=== PATIENT | male | born 1950 | race Caucasian/White ===

== ENCOUNTER 2020-04-13 15:41 | Inpatient (IN) ==
[2020-04-13] MEDS ORDERED: IOPAMIDOL 100 ML BOTTLE IV ONE (15:42)
[2020-04-13] MEDS ORDERED: VANCOMYCIN 1,000 MG in 0.9 % SODIUM CHLORIDE 250 ML IV ONE (16:29)
[2020-04-13] MEDS ORDERED: 0.9 % SODIUM CHLORIDE 1,000 ML IV ONE (16:29)
[2020-04-13] MEDS ORDERED: PIPERACILLIN SODIUM/TAZOBACTAM 3.375 GM in DEXTROSE 5% IN WATER 50 ML IV SCH (16:30)
--- NOTE | 2020-04-13 16:35 | Emergency Department Note ---
Fever HPI - General Chief Complaint: Fever Stated Complaint: fever Time Seen by Provider: 04/13/20 16:29 Source: patient Mode of arrival: ambulatory Limitations: no limitations - History of Present Illness HPI Narrative: 69-year-old male comes in 1 day status post liver biopsy with a fever of 102. His liver is been biopsied because there was a neoplasm there and they were trying to sort out whether it was from his prostate or his stomach which also bernstein ve malignancy. [facility] sent him over. He is not having significant belly pain but he says his belly is a little bit more distended and his legs have a little bit more swelling. He does not have a history of liver failure. Denies trouble breathing. - Related Data Home Medications Medication Instructions Recorded Confirmed Walking cane 1 MISCELLANE 05/15/15 02/07/20 multivitamin 1 tab PO DAILY tab 05/15/15 04/13/20 marijuana 1 dose MISCELLANE QDAY 04/22/17 04/13/20 Right leg brace-Custom Hinged 0 dose .ROUTE .MEDSUPPLY 12/07/17 04/13/20 acidophilus 1 tab PO DAILY 02/07/20 04/13/20 ginsing 1 tab PO DAILY 02/07/20 04/13/20 iodine (kelp) 0.15 mg tablet 0.15 mcg PO QDAY tab 02/07/20 04/13/20 Pantoprazole [Protonix] 40 mg PO DAILY 04/13/20 04/13/20 Sucralfate [Carafate] 1 gm PO DAILY 04/13/20 04/13/20 Allergies Allergy/AdvReac Type Severity Reaction Status Date / Time No Known Drug Allergies Allergy Verified 02/07/20 14:45 Review of Systems All systems ED: reviewed and negative except as stated. Fever PMH - Past Medical History Attestation: Yes: The following information was validated with the patient. [facility] Narrative: Family History (Last Reviewed 02/07/20 @ 14:52 by Thuy Cr RN) Father Alzheimer's disease Senile dementia Brother Malignant neoplasm of eye Mother Lymphoma Osteoarthritis Medical History (Last Updated 03/13/20 @ 12:09 by Nikhil Berry DO) Back pain (Chronic) Chronic pain (Chronic) Chronic low back pain (Chronic) Chronic use of opiate drugs therapeutic purposes (Chronic) Adenocarcinoma of prostate (Chronic ~02/18/18) Enlarged prostate (Chronic) Angiodysplasia of colon (Chronic) Basal cell carcinoma of back (Chronic) Erectile dysfunction (Chronic) Seborrheic keratosis (Chronic) Poliomyelitis acute, late effect (Chronic) Muscle spasm (Chronic) Hemorrhoids (Chronic) Fatigue (Chronic) Esophageal stricture (Chronic) Constipation (Chronic) Allergic rhinitis (Chronic) Adenomatous polyps (Chronic) Bullous impetigo (Resolved) Left inguinal hernia (Resolved) Localized superficial swelling, mass, or lump (Resolved) Rotator cuff (capsule) sprain and strain (Resolved) Past Surgical History (Last Reviewed 02/07/20 @ 14:52 by Thuy Cr RN) History of left inguinal hernia repair (Acute) History of biopsy (Resolved) History of colonoscopy (Resolved) History of esophagogastroduodenoscopy (Resolved) History of hip surgery (Resolved) History of surgery on extremity (Resolved) Medical history: Reports: other (BPH, chronic pain to his back with use of opiates, esophageal stricture) - Social History smoking status: Former smoker Alcohol use: Reports: None Drug use: Reports: none. Denies: marijuana Physical Exam Thin male no acute distress. Alert oriented able to answer questions appropri ately. Normocephalic atraumatic. Conjunctive are clear sclerae white nonicteric. Extraocular movements do appear intact. Pupils are equal and reactive. Oropharynx is pink and moist. Neck is supple without lymphadenopathy or thyromegaly. Heart is regular rate and rhythm no murmur appreciated. Lungs are clear to auscultation bilaterally without wheezes rales rhonchi or respiratory distress. Abdomen is soft with some mild tenderness around the biopsy site but I do not see any specific redness. Nor is there a fluid wave. No peritoneal signs or guarding. However his belly is very warm to the touch. No pedal edema that I can see but he does wear a brace on his right leg-chronic injury from polio. Limitations: no limitations Course Vital Signs Temperature 102.6 F H 04/13/20 15:44 Pulse Rate 86 04/13/20 15:44 Respiratory Rate 20 04/13/20 15:44 Blood Pressure 153/73 04/13/20 15:44 Pulse Oximetry (%) 98 04/13/20 15:44 Temperature 102.7 F H 06/05/20 18:44 Pulse Rate 84 04/13/20 19:30 Respiratory Rate 20 04/13/20 15:44 Blood Pressure 140/72 04/13/20 19:30 Pulse Oximetry (%) 95 04/13/20 19:30 Fever - Lab Data Lab results reviewed: Yes I reviewed the patient's lab results. Result diagrams: 04/13/20 16:55 04/13/20 16:55 Lab Results 04/13/20 04/13/20 04/13/20 Range/Units 15:40 16:55 16:55 WBC 15.7 H (4.50-11.00) K/mcL RBC 2.86 L (4.63-6.08) M/mcL Hgb 7.1 L (13.7-17.5) g/dL Hct 23.5 L (40.1-51.0) % MCV 82.2 (80.0-100.0) fL MCH 24.8 L (26.0-34.0) pg MCHC 30.2 L (31.0-36.0) g/dL RDW 22.5 H (11.5-14.5) % Plt Count 376 (140-440) K/mcL MPV 9.2 (7.4-10.4) fL Gran % 86.3 H (38.0-78.0) % Lymph % (Auto) 7.1 L (15.5-49.0) % [place] % (Auto) 6.3 (1.0-12.0) % Eos % (Auto) 0.1 (0.0-7.0) % Baso % (Auto) 0.2 (0.0-2.0) % Gran # 13.52 H (1.80-8.00) K/mcL Lymph # (Auto) 1.11 L (1.50-4.80) K/mcL [place] # (Auto) 0.98 H (0.10-0.90) K/mcL Eos # (Auto) 0.01 (0.00-0.70) K/mcL Baso # (Auto) 0.03 (0.00-0.30) K/mcL VBG Lactic Acid (0.5-2.0) mmol/L Sodium (133-145) mmol/L Potassium (3.3-5.1) mmol/L Chloride (96-108) mmol/L Carbon Dioxide (22-30) mmol/L Anion Gap (8-16) BUN (8-23) mg/dl Creatinine (0.7-1.2) mg/dl GFR Calculation Glucose (70-105) mg/dL Calcium (8.6-10.4) mg/dl Total Bilirubin (0.0-1.0) mg/dL AST (0-37) U/l ALT (0-40) U/l Alkaline Phosphatase (39-117) U/L Total Protein (5.9-8.4) gm/dL Albumin (3.2-5.2) gm/dL Globulin (2.2-3.7) gm/dL Albumin/Globulin Ratio (1.0-2.3) Lipase (7-60) U/L Procalcitonin 1.32 (<0.10) ng/mL Urine Color Yellow Urine Appearance Turbid Urine pH 5.0 (5.0-9.0) Ur Specific [place] 1.023 (1.000-1.035) Urine Protein 30 A (NEG) mg/dL Urine Glucose (UA) Negative (NEG) mg/dL Urine Ketones Neg (NEG) mg/dL Urine Occult Blood Neg (<0.03) mg/dL Urine Nitrate Neg (NEG) Urine Bilirubin Neg (NEG) mg/dL Urine Urobilinogen Neg (NEG) mg/dL Ur Leukocyte Esterase Neg (NEG) /uL Urine RBC 129 H (0-1) /hpf Urine WBC > 182 H (0-4) /hpf Ur Squamous Epith Cells 0 (0-4) /hpf Urine Bacteria 0 (0) /hpf Urine Mucus Few (0) /hpf Ur Culture Indicated? No 04/13/20 04/13/20 Range/Units 16:55 16:55 WBC (4.50-11.00) K/mcL RBC (4.63-6.08) M/mcL Hgb (13.7-17.5) g/dL Hct (40.1-51.0) % MCV (80.0-100.0) fL MCH (26.0-34.0) pg MCHC (31.0-36.0) g/dL RDW (11.5-14.5) % Plt Count (140-440) K/mcL MPV (7.4-10.4) fL Gran % (38.0-78.0) % Lymph % (Auto) (15.5-49.0) % [place] % (Auto) (1.0-12.0) % Eos % (Auto) (0.0-7.0) % Baso % (Auto) (0.0-2.0) % Gran # (1.80-8.00) K/mcL Lymph # (Auto) (1.50-4.80) K/mcL [place] # (Auto) (0.10-0.90) K/mcL Eos # (Auto) (0.00-0.70) K/mcL Baso # (Auto) (0.00-0.30) K/mcL VBG Lactic Acid 0.9 (0.5-2.0) mmol/L Sodium 127 L (133-145) mmol/L Potassium 4.1 (3.3-5.1) mmol/L Chloride 93 L (96-108) mmol/L Carbon Dioxide 24 (22-30) mmol/L Anion Gap 10.0 (8-16) BUN 18 (8-23) mg/dl Creatinine 0.9 (0.7-1.2) mg/dl GFR Calculation 88 Glucose 119 H (70-105) mg/dL Calcium 7.9 L (8.6-10.4) mg/dl Total Bilirubin 0.3 (0.0-1.0) mg/dL AST 91 H (0-37) U/l ALT 116 H (0-40) U/l Alkaline Phosphatase 296 H (39-117) U/L Total Protein 5.9 (5.9-8.4) gm/dL Albumin 2.7 L (3.2-5.2) gm/dL Globulin 3.2 (2.2-3.7) gm/dL Albumin/Globulin Ratio 0.8 L (1.0-2.3) Lipase 14 (7-60) U/L Procalcitonin (<0.10) ng/mL Urine Color Urine Appearance Urine pH (5.0-9.0) Ur Specific [place] (1.000-1.035) Urine Protein (NEG) mg/dL Urine Glucose (UA) (NEG) mg/dL Urine Ketones (NEG) mg/dL Urine Occult Blood (<0.03) mg/dL Urine Nitrate (NEG) Urine Bilirubin (NEG) mg/dL Urine Urobilinogen (NEG) mg/dL Ur Leukocyte Esterase (NEG) /uL Urine RBC (0-1) /hpf Urine WBC (0-4) /hpf Ur Squamous Epith Cells (0-4) /hpf Urine Bacteria (0) /hpf Urine Mucus (0) /hpf Ur Culture Indicated? - Radiology Data Radiology results reviewed: Yes I reviewed the patient's radiology results. 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 Order blood and urine cultures start antibiotics with Zosyn and Vanco. CT scan and laboratory work-up. Small amount IV fluids for insensible losses CBC shows significant anemia with a hemoglobin of 7.1. Blood transfusion ordered with 3 units packed red blood cells CT scan shows worsening stomach malignancy with increased metastasis to the liver. Gallbladder troncoso enhance but not thickened. Evidence of UTI with elevated red blood cells and white cells in the urine. Discussed results with the patient. The patient is high risk with worsening cancer and metastasis. Antibiotics will cover UTI as well as bacterial peritonitis. I discussed the case with Dr. Shelia Arteaga, hospitalist over at [facility], because the patient's oncologist is over there. She felt that we could handle this over here with phone consult from oncology. I also discussed the case with Dr. Pacheco, oncologist on-call for [facility] oncology. He recommended consideration of a broader differential including possible close the virus although the patient has no respiratory symptoms and is not short of breath nor having cough. His lungs are clear. Also he notes that the liver metastasis by themselves can cause fever-in this scenario the patient does not have significant ascites or evidence of bleeding internally so this may be true but bacterial peritonitis cannot be ruled out. He does recommend admitting the patient and giving packed red blood cells as well as antibiotics. He also recommends that patient be followed up in clinic on discharge for empiric treatment of GIST. He said that he is available for phone consult if needed Situation was discussed with Dr. Hoyt, he agreed to accept the patient for further care and evaluation here. Transfusion is pending Disposition: Xfer As Inpt ([facility]) Condition: Fair Referrals: Dick Tejada ARNP [Primary Care Provider] - Nati Lundy MD [Physician] -
[2020-04-13] MEDS ORDERED: 0.9 % SODIUM CHLORIDE 250 ML ONE (17:23)
[2020-04-13 17:35] LABS: Basophils # (Auto) 0.03 K/mcL (0.00-0.30); Basophils % (Auto) 0.2 % (0.0-2.0); Eosinophils # (Auto) 0.01 K/mcL (0.00-0.70); Eosinophils % (Auto) 0.1 % (0.0-7.0); Granulocytes % (Auto) 86.3 % (38.0-78.0); Hematocrit 23.5 % (40.1-51.0); Hemoglobin 7.1 g/dL (13.7-17.5); Lymphocytes # (Auto) 1.11 K/mcL (1.50-4.80); Lymphocytes % (Auto) 7.1 % (15.5-49.0); Mean Cell Volume 82.2 fL (80.0-100.0); Mean Corpuscular HGB Conc 30.2 g/dL (31.0-36.0); Mean Platelet Volume 9.2 fL (7.4-10.4); Monocytes # (Auto) 0.98 K/mcL (0.10-0.90); Monocytes % (Auto) 6.3 % (1.0-12.0); Platelet Count 376 K/mcL (140-440); RBC 2.86 M/mcL (4.63-6.08); Red Cell Distribution Width 22.5 % (11.5-14.5); WBC 15.7 K/mcL (4.50-11.00)
[2020-04-13 17:42] LABS: Appearance,Urine TURBID; Bacteria,Urine 0 /hpf (0); Bilirubin,Urine NEG (NEG); Color,Urine YELLOW; Culture Indicated,Urine NO; Glucose,Urine (UA) NEGATIVE (NEG); Ketones,Urine NEG (NEG); Leukocyte Esterase,Urine NEG /uL (NEG); Mucus,Urine FEW /hpf (0); Nitrate,Urine NEG (NEG); Protein,Urine 30 mg/dL (NEG); Specific Gravity,Urine 1.023 (1.000-1.035); Urine Blood NEG mg/dL (<0.03); Urine RBC 129 /hpf (0-1); Urine Squamous Epithelial Cell 0 /hpf (0-4); Urine WBC > 182 /hpf (0-4); Urobilinogen,Urine NEG (NEG)
[2020-04-13] MEDS ORDERED: ACETAMINOPHEN 500 MG TABLET PO ONE (17:42)
[2020-04-13] MEDS ORDERED: 0.9 % SODIUM CHLORIDE 10 ML SYRINGE IV ONE (17:43)
[2020-04-13] MEDS ORDERED: 0.9 % SODIUM CHLORIDE 250 ML IV SCH (17:45)
[2020-04-13] MEDS ORDERED: ACETAMINOPHEN 325 MG TABLET PO ONE (17:45)
[2020-04-13 18:07] LABS: ALT/SGPT 116 U/l (0-40); AST/SGOT 91 U/l (0-37); Albumin 2.7 gm/dL (3.2-5.2); Albumin/Globulin Ratio 0.8 (1.0-2.3); Alkaline Phosphatase 296 U/L (39-117); Bilirubin,Total 0.3 mg/dL (0.0-1.0); Blood Urea Nitrogen 18 mg/dl (8-23); Calcium 7.9 mg/dl (8.6-10.4); Carbon Dioxide 24 mmol/L (22-30); Globulin 3.2 gm/dL (2.2-3.7); Glomerular Filtration Rate 88; Glucose 119 mg/dL (70-105)
[2020-04-13 18:13] LABS: Chloride 93 mmol/L (96-108)
--- NOTE | 2020-04-13 18:17 | Cat Scan Report ---
CLINICAL INFORMATION: Fever COMPARISON: Abdomen and pelvic CT 03/15/2020 TECHNIQUE: Following enteric contrast, 80 cc of Isovue-370 were injected intravenously, and 60 seconds later, 0.625 mm helical slices were obtained from the mid heart through the subtrochanteric regions. Following reconstruction, 2.5 mm sagittal, coronal and axial reformatted images were processed and reviewed at bone, lung and soft tissue windows. Five minutes later, 0.625 mm helical slices were obtained from the mid heart through the kidneys and viewed at soft tissue windows.The exam was performed using radiation dose optimization techniques including, but not limited to, automated exposure control, adjustment of the mA and/or kV according to patient size and use of iterative reconstruction technique. FINDINGS: The lung bases show focal scarring in the lingula and posterior right lower lobe. No pulmonary nodules in the bases. No effusions The visualized heart is grossly normal Abdominal images show multiple large inhomogeneous low-attenuation lesions widely disseminated throughout the liver which have increased dramatically in size and number since the comparison CT less than one month prior. These range between 1 cm and 7 cm. There is suspicion for metastatic disease. The gallbladder wall is normal thickness but there is diffuse enhancement. A small amount of ascites has developed some of which surrounds the gallbladder. The kidneys, both adrenal glands, spleen pancreas and aorta, aortic branches are normal in size, configuration and attenuation without focal lesion. There is no free air. Pelvic images show mild prostate enlargement which are stable. The urinary bladder is unremarkable. The large mass originating from the posterior wall of the gastric cardia and fundus extending into the posterior perigastric soft tissues has increased in size rapidly from 8 to 11 cm in less than one month. Scattered regions of necrosis again seen within the mass. The mass does not invade the adjacent right kidney or spleen however. Multiple moderately enlarged lymph nodes have developed in the upper abdomen in the peripancreatic perigastric and left paraaortic region and likely represent metastatic adenopathy. Small and large bowel show symmetrical dilatation compatible with moderate ileus. Bone windows show solid fusion across the right hip joint with marked atrophy of the right hemipelvis and right thigh musculature as previously seen. IMPRESSION: 1. Large mass, originating from the posterior wall of the gastric fundus, has increased rapidly from 8 to 10 cm in less than one month. It is suspicious for either primary gastric carcinoma or GIST tumor. Multiple large metastases, widely disseminated throughout the liver, have also increased dramatically in size and number and just less than one month. Multiple moderately enlarged lymph nodes in the upper abdomen have also increased. 2. Small amount of ascites. 3. Enhancement of the gallbladder wall, but no evidence of gallbladder thickening or stone. Cholecystitis is possible but less likely. Consider gallbladder ultrasound Interpreted and Authenticated by: Mike Almanza 04/13/20
--- NOTE | 2020-04-13 20:49 | Internal Med History&Physical ---
Medical - H&P: HPI Patient information: Note initiated : 04/13/20 at 8:45 pm Service Date, if different from initiated Date: [] Patient: Florentino Trujillo 69 y/o M admitted on for fever. Chief Complaint: [] History of present illness: Mr. Trujillo is a 69 year old M Presents the ED with fever. Patient was [facility] because he had a fever. He did not feel feverish. He went into the [facility] to get his second iron infusion for anemia related to his cancer. Pertinent history is on March 13 he went to the ER for weakness nausea dizziness headache shortness of breath. At that time he was found to have a hemoglobin of 4.2, a leukocytosis of 14. That time patient was transferred to [place] for GI bleed. While at the [place] where an EGD was done which showed a fungating ulcerating oozing mass 5 x 7 cm in the gastrium. He had a CT chest ab domen pelvis which showed a large gastric fundus mass measuring 7.7 with bulky confluent hepatic metastatic disease in all lobes of the liver. 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 He was discharged on the . Follow-up with Dr. Vidal. Dr. Hanson's in order to lower extremity venous Doppler which for bilateral lower extremity swelling which showed no DVTs. Follow-up with Dr. Lundy his oncologist who needed more tissue for mutation studies. He underwent a CT-guided biopsy at [facility] on April 12. And today he went to the [facility] for follow-up visit. Because he had fever he was asked to go to the ER. In the ER was found to have a leukocytosis of 15, he also had a leukocytosis on the day he was transferred up to [place]. He is febrile with a temperature of 102, he had hemoglobin 7.1 and a sodium of 127. Liver enzymes elevated. Lactate was okay but procalcitonin was elevated although in the setting of metastatic cancer difficult to interpret procalcitonin results. Patient denies any blood in his stools Urinalysis unimpressive, no leukocyte Esterase or nitrites but did have WBCs. Patient denies dysuria Patient denies abdominal pain but states he feels a little bit more distended lately. No chest pain shortness of breath or coughing. He denies any blood in his stool. He has braces on his legs as he had polio as a child. He does have edema in his legs but he is had that off and on for quite a while. No change in the past month. Dr. Velazco did discuss the case with on-call oncologist Dr. Pacheco. Dr. Pacheco did mention that fever could simply be from the metastatic liver dz given that the case for bacterial peritonitis is pretty weak as well as a UTI. Patient does not have any respiratory symptoms whatsoever to indicate a consideration for coronavirus. Lower half of the lungs on CT abdomen/pelvis were unremarkable. Regardless we will treat empirically for infection and f/u labs and cultures. Patient will need to follow-up closely with oncologist and as it was suggested may need to start empiric treatment before the mutation studies are back given his rapid progression. Review of Systems: Pertinent positives above. Denies headache/chills/nausea/vomiting/chest or abdominal pain/cough/dyspnea/diarrhea. Remaining 10 point review of system reviewed negative Medical - H&P: H Medical history: Medical History (Last Updated 03/13/20 @ 12:09 by Nikhil Berry DO) Back pain (Chronic) Chronic pain (Chronic) Chronic low back pain (Chronic) Chronic use of opiate drugs therapeutic purposes (Chronic) Adenocarcinoma of prostate (Chronic ~02/18/18) Enlarged prostate (Chronic) Angiodysplasia of colon (Chronic) Basal cell carcinoma of back (Chronic) Erectile dysfunction (Chronic) Seborrheic keratosis (Chronic) Poliomyelitis acute, late effect (Chronic) Muscle spasm (Chronic) Hemorrhoids (Chronic) Fatigue (Chronic) Esophageal stricture (Chronic) Constipation (Chronic) Allergic rhinitis (Chronic) Adenomatous polyps (Chronic) Bullous impetigo (Resolved) Left inguinal hernia (Resolved) Localized superficial swelling, mass, or lump (Resolved) Rotator cuff (capsule) sprain and strain (Resolved) New gist tumor following Dr. Lundy Past Surgical History (Last Reviewed 02/07/20 @ 14:52 by Thuy Cr RN) History of left inguinal hernia repair (Acute) History of biopsy (Resolved) History of colonoscopy (Resolved) History of esophagogastroduodenoscopy (Resolved) History of hip surgery (Resolved) History of surgery on extremity (Resolved) Family History (Last Reviewed 02/07/20 @ 14:52 by Thuy Cr RN) Father Alzheimer's disease Senile dementia Brother Malignant neoplasm of eye Mother Lymphoma Osteoarthritis Social History (Last Updated 02/07/20 @ 14:55 by Ino Paula MD) Quit smoking 20 years ago Quit drinking 20 years ago Lives with his girlfriend Medical - H&P: Meds Home Medications Medication Instructions Recorded Confirmed Type Walking cane 1 MISCELLANE 05/15/15 02/07/20 History multivitamin 1 tab PO DAILY tab 05/15/15 04/13/20 History marijuana 1 dose MISCELLANE QDAY 04/22/17 04/13/20 History Right leg brace-Custom Hinged 0 dose .ROUTE .MEDSUPPLY 12/07/17 04/13/20 History acidophilus 1 tab PO DAILY 02/07/20 04/13/20 History ginsing 1 tab PO DAILY 02/07/20 04/13/20 History iodine (kelp) 0.15 mg tablet 0.15 mcg PO QDAY tab 02/07/20 04/13/20 History Pantoprazole [Protonix] 40 mg PO DAILY 04/13/20 04/13/20 History Sucralfate [Carafate] 1 gm PO DAILY 04/13/20 04/13/20 History Allergies Allergy/AdvReac Type Severity Reaction Status Date / Time No Known Drug Allergies Allergy Verified 02/07/20 14:45 Medical - H&P: Exam - Constitutional Vitals: Temp Pulse Resp BP Pulse Ox 102.7 F H 84 20 140/72 95 04/13/20 18:44 04/13/20 19:30 04/13/20 15:44 04/13/20 19:30 04/13/20 19:30 Exam: General: Alert, Awake, No acute Distress Eyes/N/T: EOMI, PERRL, dry MM Head/Neck: neck supple, normocephalic atraumatic CV: RRR, No murmurs, normal s1/s2 Pulm: Clear b/l, no wheezing/rhonchi/rales Abd: soft, mildly distended - enlarged liver, nontender, +BS x4 Ext: no clubbing/cyanosis, 1-2+ b/l LE edema Neuro: Alert, no focal deficits, moves all extremities, CN 2-12 grossly intact, symmetrical strength b/l upper/lower, sensations intact b/l upper/lower Skin: warm/dry Medical - H&P: Reslt - Labs CBC & Chem 7: 04/13/20 16:55 04/13/20 16:55 Labs: Short CBC 04/13/20 Range/Units 16:55 WBC 15.7 H (4.50-11.00) K/mcL Hgb 7.1 L (13.7-17.5) g/dL Hct 23.5 L (40.1-51.0) % Plt Count 376 (140-440) K/mcL BMP 04/13/20 16:55 Sodium 127 L Potassium 4.1 Chloride 93 L Carbon Dioxide 24 BUN 18 Creatinine 0.9 Glucose 119 H Calcium 7.9 L Liver Function 04/13/20 Range/Units 16:55 Total Bilirubin 0.3 (0.0-1.0) mg/dL AST 91 H (0-37) U/l ALT 116 H (0-40) U/l Alkaline Phosphatase 296 H (39-117) U/L Albumin 2.7 L (3.2-5.2) gm/dL Urine 04/13/20 Range/Units 15:40 Urine Color Yellow Urine Appearance Turbid Urine pH 5.0 (5.0-9.0) Ur Specific [place] 1.023 (1.000-1.035) Urine Protein 30 A (NEG) mg/dL Urine Glucose (UA) Negative (NEG) mg/dL Medical - H&P: A/P - Narrative A/P Narrative: A: *Fever: source unknown. Source could be recent CT guided biopsy leading peritoneal infection (but no abd pain and minimal ascites lends to weak case) vs (although UA relatively unimpressive, does show elevated WBCs but no leukocyte esterase or nitrite and no dysuria leading to weak case as well). 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 was supposed to get 2nd infusion today. 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 Lundy *Transaminitis: 2/2 tumor test disease *Mild debility from polio as a child: occasionally uses and cane and uses leg braces P: -IV abx, pending BC/UC -prn Transfusion, did get transfusion in ED -case discussed with Oncologist (Dr. Pacheco, on-call for Dr. Lundy) recommended treating empirically for infection and f/u with oncology as soon as discharged as will likely need to start empiric treatment rather than wait for mutation studies given the rapid progression. -IV hydration, f/u sodium -paracentesis if able/ascites increases - -f/u with oncology outpt -ppx: SCD/Ambulation full code
[2020-04-13] MEDS ORDERED: POTASSIUM CHLORIDE 40 MEQ in DEXTROSE 5% IN WATER 500 ML IV PRN (21:35)
[2020-04-13] MEDS ORDERED: MAGNESIUM SULFATE 2 GM/50 ML BAG IV PRN (21:35)
[2020-04-13] MEDS ORDERED: POLYETHYLENE GLYCOL 3350 17 GM PACKET PO PRN (21:35)
[2020-04-13] MEDS ORDERED: VANCOMYCIN PER PHARMACY IV ONE (21:35)
[2020-04-13] MEDS ORDERED: ONDANSETRON 4 MG/2 ML VIAL IV PRN (21:35)
[2020-04-13] MEDS ORDERED: 0.9 % SODIUM CHLORIDE 1,000 ML IV SCH (21:35)
[2020-04-13] MEDS ORDERED: IPRATROPIUM/ALBUTEROL 3 ML AMPUL.NEB NEB PRN (21:35)
[2020-04-13] MEDS ORDERED: POTASSIUM CHLORIDE 20 MEQ TABLET PO PRN ×2 (21:35)
[2020-04-13] MEDS: PIPERACILLIN SODIUM/TAZOBACTAM 3.375 GM in DEXTROSE 5% IN WATER 50 ML IV SCH (22:50)
[2020-04-13] MEDS: 0.9 % SODIUM CHLORIDE 10 ML SYRINGE IV SCH (23:48)
[2020-04-14 02:08] LABS: Band Neutrophils % 11 % (0-10); Lymphocytes % 9 % (15-49); Monocytes % (Manual) 2 % (1-12); Platelet Estimate NORMAL (NORMAL); RBC Morphology NORMAL (NORMAL); Segmented Neutrophils % 78 % (38-78)
[2020-04-14] MEDS: 0.9 % SODIUM CHLORIDE 10 ML SYRINGE IV SCH ×3 (05:51→21:25)
[2020-04-14] MEDS: PIPERACILLIN SODIUM/TAZOBACTAM 3.375 GM in DEXTROSE 5% IN WATER 50 ML IV SCH (05:55)
[2020-04-14 07:23] LABS: Hematocrit 31.6 % (40.1-51.0); Hemoglobin 9.8 g/dL (13.7-17.5); Mean Cell Volume 82.9 fL (80.0-100.0); Mean Platelet Volume 9.4 fL (7.4-10.4); Platelet Count 311 K/mcL (140-440); RBC 3.81 M/mcL (4.63-6.08); Red Cell Distribution Width 19.9 % (11.5-14.5); WBC 17.2 K/mcL (4.50-11.00)
[2020-04-14 07:39] LABS: ALT/SGPT 107 U/l (0-40); AST/SGOT 81 U/l (0-37); Albumin 2.3 gm/dL (3.2-5.2); Albumin/Globulin Ratio 0.8 (1.0-2.3); Alkaline Phosphatase 278 U/L (39-117); Bilirubin,Total 1.9 mg/dL (0.0-1.0); Blood Urea Nitrogen 19 mg/dl (8-23); Calcium 7.3 mg/dl (8.6-10.4); Carbon Dioxide 22 mmol/L (22-30); Chloride 100 mmol/L (96-108); Globulin 2.9 gm/dL (2.2-3.7); Glomerular Filtration Rate 88; Glucose 131 mg/dL (70-105); Lactate Dehydrogenase 350 U/L (94-250); Phosphorous 2.4 mg/dL (2.7-4.5); Triglycerides 49 mg/dl (<150); Uric Acid 2.9 mg/dL (2.5-8.0)
[2020-04-14] MEDS ORDERED: VANCOMYCIN PER PHARMACY IV SCH (07:45)
--- NOTE | 2020-04-14 08:24 | Internal Med Progress Note ---
Medical - PN: Subj Patient information: Note initiated : 04/14/20 at 8:12 am Service Date, if different from initiated Date: [] Patient: Florentino Trujillo 69 y/o M admitted on 04/13/20 for fever. Chief Complaint: [] Interval history: Mr. Trujillo is a 69 year old M Presents the ED with fever. Patient was sent in from the [facility] because he had a fever. He did not feel feverish. He went into the [facility] to get his second iron infusion for anemia related to his cancer. Pertinent history is on March 13 he went to the ER for weakness nausea dizziness headache shortness of breath. At that time he was found to have a hemoglobin of 4.2, a leukocytosis of 14. That time patient was transferred to [place] for GI bleed. While at the [place] where an EGD was done which showed a fungating ulcerating oozing mass 5 x 7 cm in the gastrium. He had a CT chest abdomen pelvis which showed a large gastric fundus mass measuring 7.7 with bulky confluent hepatic metastatic disease in all lobes of the liver. 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 He was discharged on the . Follow-up with Dr. Vidal. Dr. Hanson's in order to lower extremity venous Doppler which for bilateral lower extremity swelling which showed no DVTs. Follow-up with Dr. Lundy his oncologist who needed more tissue for mutation studies. He underwent a CT-guided biopsy at [facility] on April 12. And today he went to the [facility] for follow-up visit. Because he had fever he was asked to go to the ER. In the ER was found to have a leukocytosis of 15, he also had a leukocytosis on the day he was transferred up to [place]. He is febrile with a temperature of 102, he had hemoglobin 7.1 and a sodium of 127. Liver enzymes elevated. L actate was okay but procalcitonin was elevated although in the setting of metastatic cancer difficult to interpret procalcitonin results. Patient denies any blood in his stools Urinalysis unimpressive, no leukocyte Esterase or nitrites but did have WBCs. Patient denies dysuria Patient denies abdominal pain but states he feels a little bit more distended lately. No chest pain shortness of breath or coughing. He denies any blood in his stool. He has braces on his legs as he had polio as a child. He does have edema in his legs but he is had that off and on for quite a while. No change in the past month. Dr. Velazco did discuss the case with on-call oncologist Dr. Pacheco. Dr. Pacheco did mention that fever could simply be from the metastatic liver dz given that the case for bacterial peritonitis is pretty weak as well as a UTI. Patient does not have any respiratory symptoms whatsoever to indicate a consideration for coronavirus. Lower half of the lungs on CT abdomen/pelvis were unremarkable. Regardless we will treat empirically for infection and f/u labs and cultures. Patient will need to follow-up closely with oncologist and as it was suggested may need to start empiric treatment before the mutation studies are back given his rapid progression. 04/14 Patient does not feel feverish. No new pains or complaints. Sodium improved. Bilirubin mildly elevated. Review of Systems: denies headache/fever/chills/vomiting/chest or abdominal pain/cough/dyspnea/di arrhea. Otherwise see above. - Constitutional Vitals: Vital Signs Temp Pulse Resp BP Pulse Ox 100.9 F H 74 18 100/55 94 04/14/20 08:00 04/14/20 03:45 04/14/20 08:00 04/14/20 08:00 04/14/20 08:00 Period Temp Pulse Resp BP Sys/Caldwell Pulse Ox Last 24 Hr 99.2 F-103.6 F 71-95 18-20 100-154/53-91 93-98 Intake and Output 04/13/20 04/14/20 04/14/20 21:59 05:59 13:59 Intake Total 1300 2416 50 Output Total 300 Balance 1300 2116 50 Weight 67.177 kg Intake & Output: Intake & Output 04/13/20 04/14/20 04/14/20 21:59 05:59 13:59 Intake Total 1300 2416 50 Output Total 300 Balance 1300 2116 50 Weight 67.177 kg Intake: IV 1300 194 50 Sodium Chloride 0.9% 1,000 ml @ 1000 144 75 mls/hr IV .[id number] [facility] Rx#: [id number] Zosyn 3.375 gm In Dextrose 5% 50 50 50 in Water 50 ml @ 100 mls/hr IV Q6H [facility] Rx#:[id number] Vancomycin 1,000 mg In Sodium 250 Chloride 0.9% 250 ml @ 250 mls/ hr IV ONCE ONE Rx#:[id number] Oral 120 Blood Product 976 Packed Cells 976 IV - Manual Only 150 Output: Void Amount 300 Other: Urine Appearance Cloudy Clear Urine Color Dark Yellow Dark Yellow Urine Odor Strong Normal Stool Size Moderate Stool Color Brown Stool Consistency Soft Formed Exam: General: Alert, Awake, No acute Distress Eyes/N/T: EOMI, Head/Neck: neck supple, CV: RRR, No murmurs, Pulm: Clear b/l, no wheezing/rhonchi/rales Abd: soft, mildly distended - enlarged liver, nontender, +BS x4 Ext: no clubbing/cyanosis, b/l LE edema L>R 1-2+ Neuro: Alert, no focal deficits, moves all extremities, Skin: warm/dry Medical - PN: Obj Da - Labs CBC & Chem 7: 04/14/20 06:34 04/14/20 06:34 Labs: Abnormal Lab Results 04/14/20 04/14/20 04/13/20 06:34 06:34 16:55 WBC 17.2 H RBC 3.81 L Hgb 9.8 L Hct 31.6 L MCH 25.7 L MCHC RDW 19.9 H Gran % Lymph % (Auto) Gran # Lymph # (Auto) [place] # (Auto) Band Neutrophils % 11 H Lymphocytes % 9 L Sodium 132 L Chloride Glucose 131 H Calcium 7.3 L Phosphorus 2.4 L Total Bilirubin 1.9 H Direct Bilirubin 1.0 H GGT 219 H AST 81 H ALT 107 H Alkaline Phosphatase 278 H Lactate Dehydrogenase 350 H Total Protein 5.2 L Albumin 2.3 L Albumin/Globulin Ratio 0.8 L Urine Protein Urine RBC Urine WBC 04/13/20 04/13/20 04/13/20 16:55 16:55 15:40 WBC 15.7 H RBC 2.86 L Hgb 7.1 L Hct 23.5 L MCH 24.8 L MCHC 30.2 L RDW 22.5 H Gran % 86.3 H Lymph % (Auto) 7.1 L Gran # 13.52 H Lymph # (Auto) 1.11 L [place] # (Auto) 0.98 H Band Neutrophils % Lymphocytes % Sodium 127 L Chloride 93 L Glucose 119 H Calcium 7.9 L Phosphorus Total Bilirubin Direct Bilirubin GGT AST 91 H ALT 116 H Alkaline Phosphatase 296 H Lactate Dehydrogenase Total Protein Albumin 2.7 L Albumin/Globulin Ratio 0.8 L Urine Protein 30 A Urine RBC 129 H Urine WBC > 182 H Meds: Medications Acetaminophen (Tylenol) 650 mg PO Q6HP PRN PRN Reason: PAIN/FEVER > 101 Albuterol/Ipratropium (Duoneb) 3 ml NEB Q4HP PRN PRN Reason: Shortness Of Breath Potassium Chloride 40 meq/ (Dextrose) 520 mls @ 130 mls/hr IV UD PRN PRN Reason: Potassium < 3 Magnesium Sulfate (Magnesium Sulfate) 2 gm in 50 mls @ 50 mls/hr IV UD PRN PRN Reason: Magnesium </= 1.6 Sodium Chloride (Sodium Chloride 0.9%) 1,000 mls @ 75 mls/hr IV .[id number] [facility] Stop: 04/14/20 10:54 Last Infusion: 04/14/20 05:55 Dose: 75 mls/hr Documented by: Piperacillin Sod/Tazobactam (Sod 3.375 gm/ Dextrose) 50 mls @ 100 mls/hr IV Q6H [facility]; Protocol Last Infusion: 04/14/20 06:55 Dose: Infused Documented by: Vancomycin HCl 1,000 mg/ (Sodium Chloride) 250 mls @ 250 mls/hr IV Q12H [facility] Lactobacillus Rhamnosus (Culturelle) 1 cap PO DAILY [facility] Ondansetron HCl (Zofran) 4 mg IV Q4HP PRN PRN Reason: Nausea And Vomiting Pantoprazole Sodium (Protonix) 40 mg PO DAILY [facility] Polyethylene Glycol (Miralax) 17 gm PO DAILYP PRN PRN Reason: Constipation Potassium Chloride (Kdur) 40 meq PO UD PRN PRN Reason: Potssium is 3-3.5 Potassium Chloride (Kdur) 40 meq PO UD PRN PRN Reason: Potassium < 3 Sodium Chloride (Saline Flush) 10 ml IV Q8 [facility] Last Admin: 04/14/20 05:51 Dose: Not Given Documented by: Sucralfate (Carafate) 1 gm PO DAILY [facility] Vancomycin HCl (Vancomycin Per Pharmacy) 1 order IV UD [facility]; Protocol Medical - PN: A/P - Time Spent With Patient Total time spent is greater than 50% in coordination of care (as documented) at patient's floor/unit and/or counseling patient: - Narrative A/P Narrative: A: *Fever: source unknown, Infectious vs Metastatic CA -Source could be recent CT guided biopsy leading peritoneal infection (but no abd pain and minimal ascites lends to weak case) vs (although UA relatively unimpressive, does show elevated WBCs but no leukocyte esterase or nitrite and no dysuria leading to weak case as well). 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 was supposed to get 2nd infusion today. 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 Lundy *Transaminitis/Hyperbili: 2/2 tumor, metastatic disease. At risk for biliary obstruction *Mild debility from polio as a child: occasionally uses and cane and uses leg braces P: -IV vanc/cefepime, d/c vanco in am if MRSA screen neg, pending BC/UC -prn Transfusion, did get transfusion in ED -case discussed with Oncologist (Dr. Pacheco, on-call for Dr. Lundy) recommended treating empirically for infection and f/u with oncology as soon as discharged as will likely need to start empiric treatment rather than wait for mutation studies given the rapid progression. -IV hydration, f/u sodium -paracentesis if able/ascites increases -CT chest to complete w/u for unkown fever -f/u with oncology outpt -ppx: SCD/Ambulation full code Medical - PN: Qual - Stroke Symptom Onset Unknown: No - VTE Deep Vein Thrombosis/Pulmonary Embolism Present on Admission: No
[2020-04-14] MEDS: CEFEPIME 2 GM VIAL IV SCH ×2 (08:46→21:24)
[2020-04-14] MEDS: LACTOBACILLUS 1 CAPSULE PO SCH (08:47)
[2020-04-14] MEDS: ACETAMINOPHEN 325 MG TABLET PO PRN (08:47)
[2020-04-14] MEDS ORDERED: PANTOPRAZOLE 40 MG TABLET PO SCH (09:00)
[2020-04-14] MEDS ORDERED: SUCRALFATE 1 GM TABLET PO SCH (09:00)
[2020-04-14 09:07] LABS: Anisocytosis 2+ (NONE SEEN); Band Neutrophils % 4 % (0-10); Hypochromasia FEW (NONE SEEN); Lymphocytes % 1 % (15-49); Monocytes % (Manual) 3 % (1-12); Platelet Estimate NORMAL (NORMAL); Polychromasia 1+ (NONE SEEN); RBC Morphology ABNORM (NORMAL); Segmented Neutrophils % 92 % (38-78)
[2020-04-14] MEDS: VANCOMYCIN 1,000 MG in 0.9 % SODIUM CHLORIDE 250 ML IV SCH ×2 (10:10→21:24)
--- NOTE | 2020-04-14 10:25 | Cat Scan Report ---
CLINICAL INFORMATION: Fever COMPARISON: None TECHNIQUE: 0.625 mm axial slices were obtained from the lung apices through the bases without intravenous contrast. 2.5 mm Sagittal, coronal and axial reformatted images were processed and reviewed at bone, lung and soft tissue windows. 7 mm axial MIP images were also reconstructed to optimize pulmonary nodule detection.The exam was performed using radiation dose optimization techniques including, but not limited to, automated exposure control, adjustment of the mA and/or kV according to patient size and use of iterative reconstruction technique. FINDINGS: Pulmonary parenchymal windows show mild centrilobular emphysema featuring chronic bronchitis with elevated lung volumes, wall thickening of the bronchi and multiple small bullae - predominantly in the upper lobes. There is a 6 mm circumscribed solid nodule in the right middle lobe on image 85 which is unchanged. There are no infiltrates. Minor subsegmental atelectasis in both posterior lower lobes noted with small left and tiny right pleural effusions. Mediastinal windows show the noncontrasted thoracic aorta and pulmonary arteries to be normal in diameter. The heart is normal in size with minimal calcific plaque in the coronary arteries. Esophagus is grossly normal. There is no adenopathy in the mediastinal, hilar or axillary regions. Thyroid is grossly normal. Bone windows show no osseous metastases or other abnormality. Abdominal images again show the very large mass originating from the posterior gastric wall extending into the extragastric soft tissues and multiple very large metastases which nearly replace the liver. (Please see abdomen CT report one day prior (. IMPRESSION: 1. No evidence of infiltrate or other cause for fever in the chest. Fever may be related to malignancy or, possibly, cholecystitis. Consider limited gallbladder ultrasound. 2. Mild centrilobular emphysema. 3. Small left and tiny right pleural effusions unchanged 4. 6 mm well-circumscribed right middle lobe nodule, likely a granuloma, is stable. No pulmonary metastases Interpreted and Authenticated by: Mike Almanza 04/14/20
--- NOTE | 2020-04-14 18:18 | Ultrasound Report ---
CLINICAL INFORMATION: ?cholecystitis COMPARISON: Abdomen CT 04/13/2020 FINDINGS: Gallbladder wall is normal thickness - 3 mm. There is no focal tenderness. No stones identified. Common bile duct normal at 4 mm. Multiple hepatic metastases again seen. Pancreas is normal IMPRESSION: No sonographic evidence of cholecystitis. Gallbladder wall is normal thickness and there is no focal tenderness or stones. Interpreted and Authenticated by: Mike Almanza 04/14/20
[2020-04-14] MEDS: MUPIROCIN OINT 2% 22GM NARES SCH (21:25)
[2020-04-15] MEDS: ACETAMINOPHEN 325 MG TABLET PO PRN (03:18)
[2020-04-15] MEDS: 0.9 % SODIUM CHLORIDE 10 ML SYRINGE IV SCH ×3 (04:11→21:13)
[2020-04-15 07:18] LABS: Hematocrit 31.6 % (40.1-51.0); Hemoglobin 9.7 g/dL (13.7-17.5); Mean Cell Volume 83.4 fL (80.0-100.0); Mean Corpuscular HGB Conc 30.7 g/dL (31.0-36.0); Mean Platelet Volume 9.7 fL (7.4-10.4); Platelet Count 353 K/mcL (140-440); RBC 3.79 M/mcL (4.63-6.08); Red Cell Distribution Width 20.2 % (11.5-14.5); WBC 14.6 K/mcL (4.50-11.00)
[2020-04-15 07:33] LABS: ALT/SGPT 84 U/l (0-40); AST/SGOT 50 U/l (0-37); Albumin/Globulin Ratio 0.6 (1.0-2.3); Alkaline Phosphatase 272 U/L (39-117); Bilirubin,Total 0.8 mg/dL (0.0-1.0); Blood Urea Nitrogen 18 mg/dl (8-23); Calcium 7.5 mg/dl (8.6-10.4); Carbon Dioxide 22 mmol/L (22-30); Chloride 100 mmol/L (96-108); Globulin 3.1 gm/dL (2.2-3.7); Glomerular Filtration Rate 88; Glucose 102 mg/dL (70-105); Lactate Dehydrogenase 317 U/L (94-250); Triglycerides 75 mg/dl (<150); Uric Acid 3.4 mg/dL (2.5-8.0)
[2020-04-15 07:34] LABS: Bilirubin,Direct 0.4 mg/dL (0.0-0.3); Phosphorous 2.2 mg/dL (2.7-4.5)
[2020-04-15] MEDS: SUCRALFATE 1 GM TABLET PO SCH (07:55)
[2020-04-15] MEDS: PANTOPRAZOLE 40 MG TABLET PO SCH (07:55)
--- NOTE | 2020-04-15 08:02 | Internal Med Progress Note ---
Medical - PN: Subj Patient information: Note initiated : 04/15/20 at 7:58 am Service Date, if different from initiated Date: [] Patient: Florentino Trujillo 69 y/o M admitted on 04/13/20 for fever. Chief Complaint: [] Interval history: Mr. Trujillo is a 69 year old M Presents the ED with fever. Patient was sent in from the [facility] because he had a fever. He did not feel feverish. He went into the [facility] to get his second iron infusion for anemia related to his cancer. Pertinent history is on March 13 he went to the ER for weakness nausea dizziness headache shortness of breath. At that time he was found to have a hemoglobin of 4.2, a leukocytosis of 14. That time patient was transferred to [place] for GI bleed. While at the [place] where an EGD was done which showed a fungating ulcerating oozing mass 5 x 7 cm in the gastrium. He had a CT chest abdomen pelvis which showed a large gastric fundus mass measuring 7.7 with bulky confluent hepatic metastatic disease in all lobes of the liver. 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 He was discharged on the . Follow-up with Dr. Vidal. Dr. Hanson's in order to lower extremity venous Doppler which for bilateral lower extremity swelling which showed no DVTs. Follow-up with Dr. Lundy his oncologist who needed more tissue for mutation studies. He underwent a CT-guided biopsy at [facility] on April 12. And today he went to the [facility] for follow-up visit. Because he had fever he was asked to go to the ER. In the ER was found to have a leukocytosis of 15, he also had a leukocytosis on the day he was transferred up to [place]. He is febrile with a temperature of 102, he had hemoglobin 7.1 and a sodium of 127. Liver enzymes elevated. L actate was okay but procalcitonin was elevated although in the setting of metastatic cancer difficult to interpret procalcitonin results. Patient denies any blood in his stools Urinalysis unimpressive, no leukocyte Esterase or nitrites but did have WBCs. Patient denies dysuria Patient denies abdominal pain but states he feels a little bit more distended lately. No chest pain shortness of breath or coughing. He denies any blood in his stool. He has braces on his legs as he had polio as a child. He does have edema in his legs but he is had that off and on for quite a while. No change in the past month. Dr. Velazco did discuss the case with on-call oncologist Dr. Pacheco. Dr. Pacheco did mention that fever could simply be from the metastatic liver dz given that the case for bacterial peritonitis is pretty weak as well as a UTI. Patient does not have any respiratory symptoms whatsoever to indicate a consideration for coronavirus. Lower half of the lungs on CT abdomen/pelvis were unremarkable. Regardless we will treat empirically for infection and f/u labs and cultures. Patient will need to follow-up closely with oncologist and as it was suggested may need to start empiric treatment before the mutation studies are back given his rapid progression. 04/14 Patient does not feel feverish. No new pains or complaints. Sodium improved. Bilirubin mildly elevated. 04/15 No pains or complaints. Mild fever overnight, fever curve improving. Fluctuating leukocytosis although decreased today. Mild bandemia initially present has resolved. Review of Systems: denies headache/fever/chills/vomiting/chest or abdominal pain/cough/dyspnea/diarrhea. Otherwise see above. - Constitutional Vitals: Vital Signs Temp Pulse Resp BP Pulse Ox 98.1 F 60 16 112/68 98 04/15/20 06:52 04/15/20 06:52 04/15/20 06:52 04/15/20 06:52 04/15/20 06:52 Period Temp Pulse Resp BP Sys/Caldwell Pulse Ox Last 24 Hr 97.7 F-100.9 F 60-69 16-20 94-112/52-68 93-98 Intake and Output 04/14/20 04/15/20 04/15/20 21:59 05:59 13:59 Intake Total 1080 1606 Balance 1080 1606 Weight 68.492 kg Intake & Output: Intake & Output 04/14/20 04/15/20 04/15/20 21:59 05:59 13:59 Intake Total 1080 1606 Balance 1080 1606 Weight 68.492 kg Intake: IV 1106 Sodium Chloride 0.9% 1,000 ml @ 856 75 mls/hr IV .[id number] [facility] Rx#: [id number] Vancomycin 1,000 mg In Sodium 250 Chloride 0.9% 250 ml @ 250 mls/ hr IV Q12H [facility] Rx#:[id number] Oral 1080 500 Other: Percent of Meal Consumed 100% Stool Size Smear Small Stool Color Brown Brown Stool Consistency Soft Soft # Voids 1 1 # Bowel Movements 1 Exam: General: Alert, Awake, No acute Distress Eyes/N/T: EOMI, Head/Neck: neck supple, CV: RRR, No murmurs, Pulm: Clear b/l, no wheezing/rhonchi/rales Abd: soft, mildly distended - enlarged liver, nontender, +BS x4 Ext: no clubbing/cyanosis, b/l LE edema L>R 1+ Neuro: Alert, no focal deficits, moves all extremities, Skin: warm/dry Medical - PN: Obj Da - Labs CBC & Chem 7: 04/15/20 05:22 04/15/20 05:22 Labs: Abnormal Lab Results 04/15/20 04/15/20 04/14/20 05:22 05:22 06:34 WBC 14.6 H RBC 3.79 L Hgb 9.7 L Hct 31.6 L MCH 25.6 L MCHC 30.7 L RDW 20.2 H Gran % Lymph % (Auto) Gran # Lymph # (Auto) [place] # (Auto) Seg Neutrophils % Band Neutrophils % Lymphocytes % RBC Morphology Polychromasia Hypochromasia Anisocytosis ESR Sodium Chloride Glucose Calcium 7.5 L Phosphorus 2.2 L Total Bilirubin Direct Bilirubin 0.4 H GGT 207 H AST 50 H ALT 84 H Alkaline Phosphatase 272 H Lactate Dehydrogenase 317 H C-Reactive Protein 17.3 H Total Protein 5.1 L Albumin 2.0 L Albumin/Globulin Ratio 0.6 L Urine Protein Urine RBC Urine WBC 04/14/20 04/14/20 04/14/20 06:34 06:34 06:34 WBC 17.2 H RBC 3.81 L Hgb 9.8 L Hct 31.6 L MCH 25.7 L MCHC RDW 19.9 H Gran % Lymph % (Auto) Gran # Lymph # (Auto) [place] # (Auto) Seg Neutrophils % 92 H Band Neutrophils % Lymphocytes % 1 L RBC Morphology Abnorm A Polychromasia 1+ A Hypochromasia Few A Anisocytosis 2+ A ESR 45 H Sodium 132 L Chloride Glucose 131 H Calcium 7.3 L Phosphorus 2.4 L Total Bilirubin 1.9 H Direct Bilirubin 1.0 H GGT 219 H AST 81 H ALT 107 H Alkaline Phosphatase 278 H Lactate Dehydrogenase 350 H C-Reactive Protein Total Protein 5.2 L Albumin 2.3 L Albumin/Globulin Ratio 0.8 L Urine Protein Urine RBC Urine WBC 04/13/20 04/13/20 04/13/20 16:55 16:55 16:55 WBC 15.7 H RBC 2.86 L Hgb 7.1 L Hct 23.5 L MCH 24.8 L MCHC 30.2 L RDW 22.5 H Gran % 86.3 H Lymph % (Auto) 7.1 L Gran # 13.52 H Lymph # (Auto) 1.11 L [place] # (Auto) 0.98 H Seg Neutrophils % Band Neutrophils % 11 H Lymphocytes % 9 L RBC Morphology Polychromasia Hypochromasia Anisocytosis ESR Sodium 127 L Chloride 93 L Glucose 119 H Calcium 7.9 L Phosphorus Total Bilirubin Direct Bilirubin GGT AST 91 H ALT 116 H Alkaline Phosphatase 296 H Lactate Dehydrogenase C-Reactive Protein Total Protein Albumin 2.7 L Albumin/Globulin Ratio 0.8 L Urine Protein Urine RBC Urine WBC 04/13/20 15:40 WBC RBC Hgb Hct MCH MCHC RDW Gran % Lymph % (Auto) Gran # Lymph # (Auto) [place] # (Auto) Seg Neutrophils % Band Neutrophils % Lymphocytes % RBC Morphology Polychromasia Hypochromasia Anisocytosis ESR Sodium Chloride Glucose Calcium Phosphorus Total Bilirubin Direct Bilirubin GGT AST ALT Alkaline Phosphatase Lactate Dehydrogenase C-Reactive Protein Total Protein Albumin Albumin/Globulin Ratio Urine Protein 30 A Urine RBC 129 H Urine WBC > 182 H Meds: Medications Acetaminophen (Tylenol) 650 mg PO Q6HP PRN PRN Reason: PAIN/FEVER > 101 Last Admin: 04/15/20 03:18 Dose: 650 mg Documented by: Albuterol/Ipratropium (Duoneb) 3 ml NEB Q4HP PRN PRN Reason: Shortness Of Breath Cefepime HCl (Maxipime) 2 gm IV Q12H [facility]; Protocol Last Admin: 04/14/20 21:24 Dose: 2 gm Documented by: Potassium Chloride 40 meq/ (Dextrose) 520 mls @ 130 mls/hr IV UD PRN PRN Reason: Potassium < 3 Magnesium Sulfate (Magnesium Sulfate) 2 gm in 50 mls @ 50 mls/hr IV UD PRN PRN Reason: Magnesium </= 1.6 Vancomycin HCl 1,000 mg/ (Sodium Chloride) 250 mls @ 250 mls/hr IV Q12H [facility] Last Infusion: 04/14/20 22:44 Dose: Infused Documented by: Lactobacillus Rhamnosus (Culturelle) 1 cap PO DAILY [facility] Last Admin: 04/14/20 08:47 Dose: 1 cap Documented by: Mupirocin (Bactroban Oint 2%) 1 dose NARES BID [facility] Last Admin: 04/14/20 21:25 Dose: 1 dose Documented by: Ondansetron HCl (Zofran) 4 mg IV Q4HP PRN PRN Reason: Nausea And Vomiting [facility]oprazole [facility] Admin: 04/15/20 07:55 Dose: 40 mg Documented by: Polyethylene Glycol (Miralax) 17 gm PO DAILYP PRN PRN Reason: Constipation Potassium Chloride (Kdur) 40 meq PO UD PRN PRN Reason: Potssium is 3-3.5 Potassium Chloride (Kdur) 40 meq PO UD PRN PRN Reason: Potassium < 3 Sodium Chloride (Saline Flush) 10 ml IV Q8 [facility] Last Admin: 04/15/20 04:11 Dose: 10 ml Documented by: [facility]) [facility] Last Admin: 04/15/20 07:55 Dose: 1 gm Documented by: Vancomycin HCl (Vancomycin Per Pharmacy) 1 order IV UD [facility]; Protocol Medical - PN: A/P - Time Spent With Patient Total time spent is greater than 50% in coordination of care (as documented) at patient's floor/unit and/or counseling patient: - Narrative A/P Narrative: A: *Fever: source unknown, Infectious vs Metastatic CA -Source could be recent CT guided biopsy leading peritoneal infection (but no abd pain and minimal ascites lends to weak case) vs (although UA relatively unimpressive, does show elevated WBCs but no leukocyte esterase or nitrite and no dysuria leading to weak case as well). 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 was supposed to get 2nd infusion today. 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 Lundy *Transaminitis/Hyperbili: 2/2 tumor, metastatic disease. At risk for biliary obstruction w/o dz treatment *Mild debility from polio as a child: occasionally uses and cane and uses leg braces *COPD changes on CT, former smoker P: -IV vanc/cefepime, pending BC/UC -prn Transfusion, did get transfusion in ED -case discussed with Oncologist (Dr. Pacheco, on-call for Dr. Lundy) recommended treating empirically for infection and f/u with oncology as soon as discharged as will likely need to start empiric treatment rather than wait for mutation studies given the rapid progression. -f/u with oncology outpt -ppx: SCD/Ambulation full code Medical - PN: Qual - Stroke Symptom Onset Unknown: No - VTE Deep Vein Thrombosis/Pulmonary Embolism Present on Admission: No
[2020-04-15 08:07] LABS: Anisocytosis 1+ (NONE SEEN); Band Neutrophils % 1 % (0-10); Basophils % (Manual) 1 % (0-2); Eosinophils % (Manual) 2 % (0-7); Hypochromasia 1+ (NONE SEEN); Lymphocytes % 4 % (15-49); Monocytes % (Manual) 4 % (1-12); Platelet Estimate NORMAL (NORMAL); RBC Morphology ABNORMAL (NORMAL); Reactive Lymphocytes 1 % (0-2); Segmented Neutrophils % 87 % (38-78)
[2020-04-15] MEDS: LACTOBACILLUS 1 CAPSULE PO SCH (09:09)
[2020-04-15] MEDS: NEUTRA PHOS 1 PACKET PO SCH ×2 (09:09→21:12)
[2020-04-15] MEDS: MUPIROCIN OINT 2% 22GM NARES SCH ×2 (09:09→21:12)
[2020-04-15] MEDS: VANCOMYCIN 1,000 MG in 0.9 % SODIUM CHLORIDE 250 ML IV SCH ×2 (09:26→21:13)
[2020-04-15] MEDS: CEFEPIME 2 GM VIAL IV SCH ×2 (09:26→21:12)
[2020-04-16] MEDS: 0.9 % SODIUM CHLORIDE 10 ML SYRINGE IV SCH ×3 (05:53→21:33)
[2020-04-16 06:38] LABS: Hematocrit 32.3 % (40.1-51.0); Hemoglobin 10.1 g/dL (13.7-17.5); Mean Cell Volume 81.8 fL (80.0-100.0); Mean Corpuscular HGB Conc 31.3 g/dL (31.0-36.0); Mean Platelet Volume 9.7 fL (7.4-10.4); Platelet Count 455 K/mcL (140-440); RBC 3.95 M/mcL (4.63-6.08); Red Cell Distribution Width 20.3 % (11.5-14.5); WBC 14.5 K/mcL (4.50-11.00)
[2020-04-16 06:52] LABS: ALT/SGPT 97 U/l (0-40); AST/SGOT 68 U/l (0-37); Albumin 2.2 gm/dL (3.2-5.2); Albumin/Globulin Ratio 0.7 (1.0-2.3); Alkaline Phosphatase 374 U/L (39-117); Bilirubin,Direct 0.4 mg/dL (0.0-0.3); Bilirubin,Total 0.7 mg/dL (0.0-1.0); Blood Urea Nitrogen 14 mg/dl (8-23); Calcium 7.5 mg/dl (8.6-10.4); Carbon Dioxide 22 mmol/L (22-30); Chloride 101 mmol/L (96-108); Glomerular Filtration Rate 98; Glucose 100 mg/dL (70-105); Lactate Dehydrogenase 365 U/L (94-250); Phosphorous 2.2 mg/dL (2.7-4.5); Triglycerides 74 mg/dl (<150); Uric Acid 3.3 mg/dL (2.5-8.0)
[2020-04-16] MEDS: SUCRALFATE 1 GM TABLET PO SCH (07:18)
[2020-04-16] MEDS: PANTOPRAZOLE 40 MG TABLET PO SCH (07:18)
[2020-04-16] MEDS: MUPIROCIN OINT 2% 22GM NARES SCH ×2 (07:19→21:33)
[2020-04-16 07:50] LABS: Anisocytosis 2+ (NONE SEEN); Band Neutrophils % 5 % (0-10); Eosinophils % (Manual) 1 % (0-7); Lymphocytes % 4 % (15-49); Microcytosis FEW (NONE SEEN); Monocytes % (Manual) 7 % (1-12); Platelet Estimate INCREASED (NORMAL); Polychromasia FEW (NONE SEEN); RBC Morphology ABNORM (NORMAL); Segmented Neutrophils % 83 % (38-78)
[2020-04-16] MEDS: LACTOBACILLUS 1 CAPSULE PO SCH (09:32)
[2020-04-16] MEDS: CEFEPIME 2 GM VIAL IV SCH (09:33)
[2020-04-16] MEDS: VANCOMYCIN 1,000 MG in 0.9 % SODIUM CHLORIDE 250 ML IV SCH (09:33)
--- NOTE | 2020-04-16 10:59 | Internal Med Progress Note ---
Medical - PN: Subj Patient information: Note initiated : 04/16/20 at 10:57 am Service Date, if different from initiated Date: [] Patient: Florentino Trujillo 69 y/o M admitted on 04/13/20 for fever. Chief Complaint: [] Interval history: Mr. Trujillo is a 69 year old M Presents the ED with fever. Patient was sent in from the [facility] because he had a fever. He did not feel feverish. He went into the [facility] to get his second iron infusion for anemia related to his cancer. Pertinent history is on March 13 he went to the ER for weakness nausea dizziness headache shortness of breath. At that time he was found to have a hemoglobin of 4.2, a leukocytosis of 14. That time patient was transferred to [facility] for GI bleed. While at the [facility] where an EGD was done which showed a fungating ulcerating oozing mass 5 x 7 cm in the gastrium. He had a CT chest a bdomen pelvis which showed a large gastric fundus mass measuring 7.7 with bulky confluent hepatic metastatic disease in all lobes of the liver. 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 He was discharged on the . Follow-up with Dr. Vidal. Dr. Hanson's in order to lower extremity venous Doppler which for bilateral lower extremity swelling which showed no DVTs. Follow-up with Dr. Lundy his oncologist who needed more tissue for mutation studies. He underwent a CT-guided biopsy at [facility] on April 12. And today he went to the [facility] for follow-up visit. Because he had fever he was asked to go to the ER. In the ER was found to have a leukocytosis of 15, he also had a leukocytosis on the day he was transferred up to [facility]. He is febrile with a temperature of 102, he had hemoglobin 7.1 and a sodium of 127. Liver enzymes elevated. Lactate was okay but procalcitonin was elevated although in the setting of metastatic cancer difficult to interpret procalcitonin results. Patient denies any blood in his stools Urinalysis unimpressive, no leukocyte Esterase or nitrites but did have WBCs. Patient denies dysuria Patient denies abdominal pain but states he feels a little bit more distended lately. No chest pain shortness of breath or coughing. He denies any blood in his stool. He has braces on his legs as he had polio as a child. He does have edema in his legs but he is had that off and on for quite a while. No change in the past month. Dr. Velazco did discuss the case with on-call oncologist Dr. Pacheco. Dr. Pacheco did mention that fever could simply be from the metastatic liver dz given that the case for bacterial peritonitis is pretty weak as well as a UTI. Patient does not have any respiratory symptoms whatsoever to indicate a consideration for coronavirus. Lower half of the lungs on CT abdomen/pelvis were unremarkable. Regardless we will treat empirically for infection and f/u labs and cultures. Patient will need to follow-up closely with oncologist and as it was suggested may need to start empiric treatment before the mutation studies are back given his rapid progression. 04/14 Patient does not feel feverish. No new pains or complaints. Sodium improved. Bilirubin mildly elevated. 04/15 No pains or complaints. Mild fever overnight, fever curve improving. Fluctuating leukocytosis although decreased today. Mild bandemia initially present has resolved. 04/16-fever defervesced. Between a lot better. 4-5 watery stools. White count down to 14.5. Sodium 132. LFTs downtrending. - Constitutional Vitals: Vital Signs Temp Pulse Resp BP Pulse Ox 98.7 F 72 18 148/81 96 04/16/20 07:14 04/16/20 08:00 04/16/20 08:00 04/16/20 07:14 04/16/20 08:00 Period Temp Pulse Resp BP Sys/Caldwell Pulse Ox Last 24 Hr 98.4 F-100.6 F 68-72 12-20 132-152/74-81 94-98 Intake and Output 04/15/20 04/16/20 04/16/20 21:59 05:59 13:59 Intake Total 650 700 250 Output Total 300 225 101 Balance 350 475 149 Weight 155 lb 6.4 oz Intake & Output: Intake & Output 04/15/20 04/16/20 04/16/20 21:59 05:59 13:59 Intake Total 650 700 250 Output Total 300 225 101 Balance 350 475 149 Weight 155 lb 6.4 oz Intake: IV 250 250 Vancomycin 1,000 mg In Sodium 250 250 Chloride 0.9% 250 ml @ 250 mls/ hr IV Q12H [facility] Rx#:[id number] Oral 400 700 Output: Void Amount 300 225 100 Urine/Stool Mix 1 Other: Meal Dinner Percent of Meal Consumed 0% Urine Appearance Clear Clear Urine Color Bright Yellow Bright Yellow Dark Yellow Urine Odor Normal Normal Stool Size Small Moderate Stool Color Brown Brown Yellow Stool Consistency Soft Liquid Loose # Bowel Movements 1 Medical - PN: Obj Da - Labs CBC & Chem 7: 04/16/20 05:17 04/16/20 05:17 Labs: Abnormal Lab Results 04/16/20 04/16/20 04/16/20 05:17 05:17 05:17 WBC 14.5 H RBC 3.95 L Hgb 10.1 L Hct 32.3 L MCH 25.6 L MCHC RDW 20.3 H Plt Count 455 H Gran % Lymph % (Auto) Gran # Lymph # (Auto) [place]ie # (Auto) Seg Neutrophils % 83 H Band Neutrophils % Lymphocytes % 4 L Platelet Estimate Increased A RBC Morphology Abnorm A Polychromasia Few A Hypochromasia Anisocytosis 2+ A Microcytosis Few A ESR Sodium 132 L Chloride Glucose Calcium 7.5 L Phosphorus 2.2 L Total Bilirubin Direct Bilirubin 0.4 H GGT 260 H AST 68 H ALT 97 H Alkaline Phosphatase 374 H Lactate Dehydrogenase 365 H C-Reactive Protein 10.0 H Total Protein 5.2 L Albumin 2.2 L Albumin/Globulin Ratio 0.7 L Urine Protein Urine RBC Urine WBC 04/15/20 04/15/20 04/14/20 05:22 05:22 06:34 WBC 14.6 H RBC 3.79 L Hgb 9.7 L Hct 31.6 L MCH 25.6 L MCHC 30.7 L RDW 20.2 H Plt Count Gran % Lymph % (Auto) Gran # Lymph # (Auto) Davie # (Auto) Seg Neutrophils % 87 H Band Neutrophils % Lymphocytes % 4 L Platelet Estimate RBC Morphology Polychromasia Hypochromasia 1+ A Anisocytosis 1+ A Microcytosis ESR Sodium Chloride Glucose Calcium 7.5 L Phosphorus 2.2 L Total Bilirubin Direct Bilirubin 0.4 H GGT 207 H AST 50 H ALT 84 H Alkaline Phosphatase 272 H Lactate Dehydrogenase 317 H C-Reactive Protein 17.3 H Total Protein 5.1 L Albumin 2.0 L Albumin/Globulin Ratio 0.6 L Urine Protein Urine RBC Urine WBC 04/14/20 04/14/20 04/14/20 06:34 06:34 06:34 WBC 17.2 H RBC 3.81 L Hgb 9.8 L Hct 31.6 L MCH 25.7 L MCHC RDW 19.9 H Plt Count Gran % Lymph % (Auto) Gran # Lymph # (Auto) [place]ie # (Auto) Seg Neutrophils % 92 H Band Neutrophils % Lymphocytes % 1 L Platelet Estimate RBC Morphology Abnorm A Polychromasia 1+ A Hypochromasia Few A Anisocytosis 2+ A Microcytosis ESR 45 H Sodium 132 L Chloride Glucose 131 H Calcium 7.3 L Phosphorus 2.4 L Total Bilirubin 1.9 H Direct Bilirubin 1.0 H GGT 219 H AST 81 H ALT 107 H Alkaline Phosphatase 278 H Lactate Dehydrogenase 350 H C-Reactive Protein Total Protein 5.2 L Albumin 2.3 L Albumin/Globulin Ratio 0.8 L Urine Protein Urine RBC Urine WBC 04/13/20 04/13/20 04/13/20 16:55 16:55 16:55 WBC 15.7 H RBC 2.86 L Hgb 7.1 L Hct 23.5 L MCH 24.8 L MCHC 30.2 L RDW 22.5 H Plt Count Gran % 86.3 H Lymph % (Auto) 7.1 L Gran # 13.52 H Lymph # (Auto) 1.11 L Davie # (Auto) 0.98 H Seg Neutrophils % Band Neutrophils % 11 H Lymphocytes % 9 L Platelet Estimate RBC Morphology Polychromasia Hypochromasia Anisocytosis Microcytosis ESR Sodium 127 L Chloride 93 L Glucose 119 H Calcium 7.9 L Phosphorus Total Bilirubin Direct Bilirubin GGT AST 91 H ALT 116 H Alkaline Phosphatase 296 H Lactate Dehydrogenase C-Reactive Protein Total Protein Albumin 2.7 L Albumin/Globulin Ratio 0.8 L Urine Protein Urine RBC Urine WBC 04/13/20 15:40 WBC RBC Hgb Hct MCH MCHC RDW Plt Count Gran % Lymph % (Auto) Gran # Lymph # (Auto) [place]ie # (Auto) Seg Neutrophils % Band Neutrophils % Lymphocytes % Platelet Estimate RBC Morphology Polychromasia Hypochromasia Anisocytosis Microcytosis ESR Sodium Chloride Glucose Calcium Phosphorus Total Bilirubin Direct Bilirubin GGT AST ALT Alkaline Phosphatase Lactate Dehydrogenase C-Reactive Protein Total Protein Albumin Albumin/Globulin Ratio Urine Protein 30 A Urine RBC 129 H Urine WBC > 182 H Meds: Medications Acetaminophen (Tylenol) 650 mg PO Q6HP PRN PRN Reason: PAIN/FEVER > 101 Last Admin: 04/15/20 03:18 Dose: 650 mg Documented by: Albuterol/Ipratropium (Duoneb) 3 ml NEB Q4HP PRN PRN Reason: Shortness Of Breath Cefepime HCl (Maxipime) 2 gm IV Q12H [facility]; Protocol Last Admin: 04/16/20 09:33 Dose: 2 gm Documented by: Potassium Chloride 40 meq/ (Dextrose) 520 mls @ 130 mls/hr IV UD PRN PRN Reason: Potassium < 3 Magnesium Sulfate (Magnesium Sulfate) 2 gm in 50 mls @ 50 mls/hr IV UD PRN PRN Reason: Magnesium </= 1.6 Vancomycin HCl 1,000 mg/ (Sodium Chloride) 250 mls @ 250 mls/hr IV Q12H [facility] Last Admin: 04/16/20 09:33 Dose: 250 mls/hr Documented by: Lactobacillus Rhamnosus (Culturelle) 1 cap PO DAILY [facility] Last Admin: 04/16/20 09:32 Dose: 1 cap Documented by: Mupirocin (Bactroban Oint 2%) 1 dose NARES BID [facility] Last Admin: 04/16/20 07:19 Dose: 1 dose Documented by: Ondansetron HCl (Zofran) 4 mg IV Q4HP PRN PRN Reason: Nausea And Vomiting Pantoprazole Sodium (Protonix) 40 mg PO QAMAC [facility] Last Admin: 04/16/20 07:18 Dose: 40 mg Documented by: Polyethylene Glycol (Miralax) 17 gm PO DAILYP PRN PRN Reason: Constipation Potassium Chloride (Kdur) 40 meq PO UD PRN PRN Reason: Potssium is 3-3.5 Last Admin: 04/16/20 00:15 Dose: 40 meq Documented by: Potassium Chloride (Kdur) 40 meq PO UD PRN PRN Reason: Potassium < 3 Sodium Chloride (Saline Flush) 10 ml IV Q8 [facility] Last Admin: 04/16/20 05:53 Dose: 10 ml Documented by: Sucralfate (Carafate) 1 gm PO QAMAC [facility] Last Admin: 04/16/20 07:18 Dose: 1 gm Documented by: Vancomycin HCl (Vancomycin Per Pharmacy) 1 order IV [facility]; Protocol Medical - PN: A/P - Time Spent With Patient Total time spent is greater than 50% in coordination of care (as documented) at patient's floor/unit and/or counseling patient: 25 - 35 minutes - Narrative A/P Narrative: A: * *Fever: source unknown, Infectious vs Metastatic CA. Currently afebrile. White count 14,000. -Source could be recent CT guided biopsy leading peritoneal infection (but no abd pain and minimal ascites lends to weak case) vs (although UA relatively unimpressive, does show elevated WBCs but no leukocyte esterase or nitrite and no dysuria leading to weak case as well). 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 was supposed to get 2nd infusion today. 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 Lundy * *Transaminitis/Hyperbili: 2/2 tumor, metastatic disease. At risk for biliary obstruction w/o dz treatment * *Mild debility from polio as a child: occasionally uses and cane and uses leg braces * *COPD changes on CT, former smoker P: -IV vanc/cefepime, pending cultures -case discussed with Oncologist (Dr. Pacheco, on-call for Dr. Lundy) recommended treating empirically for infection and f/u with oncology as soon as discharged as will likely need to start empiric treatment rather than wait for mutation studies given the rapid progression. -f/u with oncology outpt -ppx: SCD/Ambulation Medical - PN: Qual - Stroke Symptom Onset Unknown: No - VTE Deep Vein Thrombosis/Pulmonary Embolism Present on Admission: No
--- NOTE | 2020-04-16 11:13 | Consultation ---
DATE OF CONSULTATION: 04/16/2020 INDICATION: The patient is a 69-year-old gentleman who I have seen in the past in the office for prostate cancer. He was diagnosed in 02/2018 when he had a PSA of 7.89. Biopsy did show one core in the left lateral medial area of 3+3 adenocarcinoma. He has decided on watchful waiting. Most recently his PSA was in 01/2020 which was 8.83. Recently, he was admitted to the hospital for a GIST and is undergoing chemotherapy for this. He does have metastasis. He was admitted for fevers or chills, and I was asked to see him about his prostate cancer. PAST MEDICAL HISTORY: As per dictated. ALLERGIES: None. CURRENT MEDICATIONS: As per dictated. FAMILY HISTORY: Noncontributory. SOCIAL HISTORY: As per dictated per Hospitalist's note. REVIEW OF SYSTEMS: CARDIAC: Denies any chest pain. RESPIRATORY: No wheezing, coughing, or asthma. The rest of 12-point review of systems is negative. PHYSICAL EXAMINATION: GENERAL: This is a pleasant gentleman in no apparent distress. VITAL SIGNS: As listed per nurse's notes. HEENT: Atraumatic, normocephalic. Extraocular movements are intact. Pupils equal, reactive to light and accommodation. NECK: Supple. Trachea is in the midline. HEART: Regular rate and rhythm. ABDOMEN: Soft, slight GI tenderness. GENITOURINARY: Deferred. EXTREMITIES: Without clubbing, cyanosis or edema. NEUROLOGIC: Intact. IMPRESSION: The patient with prostate cancer which is low grade. He is considering switching all his care over to the cancer center at [facility], and I feel that this would be appropriate for him. We last talked about redoing his biopsy with his PSA rising, but in the light of a GIST tumor, I do not feel that this is needed. We will see him back as needed, and I have talked to him about this and he agrees. GABY:pepito Job ID: [id number] Doc ID: [id number] Ino Paula MD
--- NOTE | 2020-04-16 15:12 | Infectious Disease Consult ---
History of Present Illness Patient information: Note initiated : 04/16/20 at 2:55 pm Service Date, if different from initiated Date: [] Patient: Florentino Trujillo 69 y/o M admitted on 04/13/20 for fever. Chief Complaint: [] Consult date: 04/16/20 Requesting Physician: Trent Hoyt Reason for Consult: GPC bacteremia Chief complaint: I was tired and was having fevers History of present illness: 69 year old man has past medical Hx of: - GIST with mets to liver, diagnosed in 03/2020, s/p recent liver Bx on April 12 at [facility] - GI bleed He was admitted on 04/13/20 after being sent from [facility] with c/o: - fevers: going on for last 1-2 days - fatigue for last few days At admission, pt had a temp of 102.7F, HR 86, RR 20, satting 98% on RA, BP 153/73. Labs remarkable for WBC 15.1, Hb 7.1, Plt 376, Cr 0.9, Lactic acid 0.9, procalcitonin 1.32, AST 91, ALT 116, ALP 296, normal kayden. Pt was admitted, transfused with blood, blood Cx obtained, started on IV vanc and IV Cefepime. CT abd pelvis at adm: Large mass, originating from the posterior wall of the gastric fundus, has increased rapidly from 8 to 10 cm in less than one month. It is suspicious for either primary gastric carcinoma or GIST tumor. Multiple large metastases, widely disseminated throughout the liver, have also increased dramatically in size and number and just less than one month. Multiple moderately enlarged lymph nodes in the upper abdomen have also increased. Small amount of ascites. Enhancement of the gallbladder wall, but no evidence of gallbladder thickening or stone. Cholecystitis is possible but less likely. Consider gallbladder ultrasound GB US: No sonographic evidence of cholecystitis. Gallbladder wall is normal thickness and there is no focal tenderness or stones Blood Cx obtained from 04/13 went +ve on 04/16/20. At time of my visit, pt confirmed above Hx, added that he is feeling better than at admission. His fatigue is significantly better. Denied any n/v/diarrhea. Endorsed pain in scrotal area, lower abdomen. Denied any sick contacts. Denied any recent dental procedures. Denied any black colored stools, blood in stools or vomiting. Review of Systems All systems PM: reviewed and no additional remarkable complaints except as state d Constitutional: as per HPI Past History Past social history: Quit smoking 20 years ago Quit drinking 20 years ago Lives with his girlfriend Medications and Allergies Home Medications Medication Instructions Recorded Confirmed Type Walking cane 1 each MISCELLANE DAILY 05/15/15 04/14/20 History multivitamin 1 tab PO DAILY tab 05/15/15 04/14/20 History marijuana 1 dose MISCELLANE QDAY PRN 04/22/17 04/14/20 History Right leg brace-Custom Hinged 0 dose .ROUTE .MEDSUPPLY 12/07/17 04/14/20 History acidophilus 1 tab PO DAILY 02/07/20 04/14/20 History ginsing 1 tab PO DAILY 02/07/20 04/14/20 History iodine (kelp) 0.15 mg tablet 0.15 mcg PO QDAY tab 02/07/20 04/14/20 History Pantoprazole [Protonix] 40 mg PO DAILY 04/13/20 04/14/20 History Sucralfate [Carafate] 1 gm PO DAILY 04/13/20 04/14/20 History Allergies Allergy/AdvReac Type Severity Reaction Status Date / Time No Known Drug Allergies Allergy Verified 02/07/20 14:45 Physical Examination Vital signs: Temp Pulse Resp BP Pulse Ox 37.5 C H 69 18 132/78 97 04/16/20 12:00 04/16/20 12:00 04/16/20 12:00 04/16/20 12:00 04/16/20 12:00 General appearance: no acute distress Eyes pulmonary: nonicteric ENT: oropharynx moist, other (no thrush, no caries) Auscultation: bilateral: clear (except at left lung base posteriorly) Cardiovascular: regular rate and rhythm Gastrointestinal: normoactive bowel sounds, soft, non-tender, other (dullness to percussion at flanks) Integumentary: normal Extremities: edema (in left leg. no redness, tenderness) Musculoskeletal: no deformities (some scoliosis. no point tenderness over vertebral spinous processes, joints) Results - Laboratory Findings CBC and BMP: 04/17/20 10:05 04/16/20 05:17 Abnormal lab findings: Abnormal Labs 04/13/20 04/13/20 04/13/20 15:40 16:55 16:55 WBC 15.7 H RBC 2.86 L Hgb 7.1 L Hct 23.5 L MCH 24.8 L MCHC 30.2 L RDW 22.5 H Plt Count Gran % 86.3 H Lymph % (Auto) 7.1 L Gran # 13.52 H Lymph # (Auto) 1.11 L [place] # (Auto) 0.98 H Seg Neutrophils % Band Neutrophils % Lymphocytes % Platelet Estimate RBC Morphology Polychromasia Hypochromasia Anisocytosis Microcytosis ESR Sodium 127 L Chloride 93 L Glucose 119 H Calcium 7.9 L Phosphorus Total Bilirubin Direct Bilirubin GGT AST 91 H ALT 116 H Alkaline Phosphatase 296 H Lactate Dehydrogenase C-Reactive Protein Total Protein Albumin 2.7 L Albumin/Globulin Ratio 0.8 L Urine Protein 30 A Urine RBC 129 H Urine WBC > 182 H 04/13/20 04/14/20 04/14/20 16:55 06:34 06:34 WBC 17.2 H RBC 3.81 L Hgb 9.8 L Hct 31.6 L MCH 25.7 L MCHC RDW 19.9 H Plt Count Gran % Lymph % (Auto) Gran # Lymph # (Auto) [place] # (Auto) Seg Neutrophils % 92 H Band Neutrophils % 11 H Lymphocytes % 9 L 1 L Platelet Estimate RBC Morphology Abnorm A Polychromasia 1+ A Hypochromasia Few A Anisocytosis 2+ A Microcytosis ESR Sodium 132 L Chloride Glucose 131 H Calcium 7.3 L Phosphorus 2.4 L Total Bilirubin 1.9 H Direct Bilirubin 1.0 H GGT 219 H AST 81 H ALT 107 H Alkaline Phosphatase 278 H Lactate Dehydrogenase 350 H C-Reactive Protein Total Protein 5.2 L Albumin 2.3 L Albumin/Globulin Ratio 0.8 L Urine Protein Urine RBC Urine WBC 04/14/20 04/14/20 04/15/20 06:34 06:34 05:22 WBC 14.6 H RBC 3.79 L Hgb 9.7 L Hct 31.6 L MCH 25.6 L MCHC 30.7 L RDW 20.2 H Plt Count Gran % Lymph % (Auto) Gran # Lymph # (Auto) [place] # (Auto) Seg Neutrophils % 87 H Band Neutrophils % Lymphocytes % 4 L Platelet Estimate RBC Morphology Polychromasia Hypochromasia 1+ A Anisocytosis 1+ A Microcytosis ESR 45 H Sodium Chloride Glucose Calcium Phosphorus Total Bilirubin Direct Bilirubin GGT AST ALT Alkaline Phosphatase Lactate Dehydrogenase C-Reactive Protein 17.3 H Total Protein Albumin Albumin/Globulin Ratio Urine Protein Urine RBC Urine WBC 04/15/20 04/16/20 04/16/20 05:22 05:17 05:17 WBC 14.5 H RBC 3.95 L Hgb 10.1 L Hct 32.3 L MCH 25.6 L MCHC RDW 20.3 H Plt Count 455 H Gran % Lymph % (Auto) Gran # Lymph # (Auto) [place] # (Auto) Seg Neutrophils % 83 H Band Neutrophils % Lymphocytes % 4 L Platelet Estimate Increased A RBC Morphology Abnorm A Polychromasia Few A Hypochromasia Anisocytosis 2+ A Microcytosis Few A ESR Sodium Chloride Glucose Calcium 7.5 L Phosphorus 2.2 L Total Bilirubin Direct Bilirubin 0.4 H GGT 207 H AST 50 H ALT 84 H Alkaline Phosphatase 272 H Lactate Dehydrogenase 317 H C-Reactive Protein 10.0 H Total Protein 5.1 L Albumin 2.0 L Albumin/Globulin Ratio 0.6 L Urine Protein Urine RBC Urine WBC 04/16/20 05:17 WBC RBC Hgb Hct MCH MCHC RDW Plt Count Gran % Lymph % (Auto) Gran # Lymph # (Auto) [place] # (Auto) Seg Neutrophils % Band Neutrophils % Lymphocytes % Platelet Estimate RBC Morphology Polychromasia Hypochromasia Anisocytosis Microcytosis ESR Sodium 132 L Chloride Glucose Calcium 7.5 L Phosphorus 2.2 L Total Bilirubin Direct Bilirubin 0.4 H GGT 260 H AST 68 H ALT 97 H Alkaline Phosphatase 374 H Lactate Dehydrogenase 365 H C-Reactive Protein Total Protein 5.2 L Albumin 2.2 L Albumin/Globulin Ratio 0.7 L Urine Protein Urine RBC Urine WBC Microbiology: Microbiology 04/13/20 16:50 Blood Blood Culture - Preliminary Gram positive cocci 04/13/20 16:55 Blood Blood Culture - Preliminary Gram positive cocci 04/13/20 15:40 Urine - Clean Void Mid-Stream Urine Culture - Final 04/13/20 07:11 Nose MRSA (PCR) - Final MRSA PCR positive Assessment and Plan - Narrative A/P Narrative: A: 1. 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 GIST: CT abd/pelvis on 04/13/20: Large mass, originating from the posterior wall of the gastric fundus, has increased rapidly from 8 to 10 cm in less than one month. It is suspicious for either primary gastric carcinoma or GIST tumor. Multiple large metastases, widely disseminated throughout the liver, have also increased dramatically in size and number and just less than one month. Multiple moderately enlarged lymph nodes in the upper abdomen have also increased. Recommendations: - Continue IV Vanc per pharmacy assisted dosing. Spoke with Pharmacy to increase the dose given low normal trough of 9.5. Check trough before the next 4th dose - Stop IV Cefepime - repeat blood Cx every other day until neg for 48 hrs - MRSA decolonization for 5 days with intransal mupirocin 2% bid and below neck whole body CHG wipes (2%) once daily will follow Chandan Tomlinson MD Infectious diseases
[2020-04-16] MEDS: VANCOMYCIN 1,500 MG in 0.9 % SODIUM CHLORIDE 500 ML IV SCH (21:31)
[2020-04-17] MEDS: SUCRALFATE 1 GM TABLET PO SCH (06:55)
[2020-04-17] MEDS: PANTOPRAZOLE 40 MG TABLET PO SCH (06:55)
[2020-04-17] MEDS: 0.9 % SODIUM CHLORIDE 10 ML SYRINGE IV SCH ×3 (06:56→21:08)
[2020-04-17] MEDS: MUPIROCIN OINT 2% 22GM NARES SCH ×2 (08:55→21:08)
[2020-04-17] MEDS: LACTOBACILLUS 1 CAPSULE PO SCH (08:55)
[2020-04-17] MEDS: VANCOMYCIN 1,500 MG in 0.9 % SODIUM CHLORIDE 500 ML IV SCH (08:55)
--- NOTE | 2020-04-17 09:54 | Internal Med Progress Note ---
Medical - PN: Subj Patient information: Note initiated : 04/17/20 at 9:52 am Service Date, if different from initiated Date: [] Patient: Florentino Trujillo 69 y/o M admitted on 04/13/20 for fever. Chief Complaint: [] Interval history: Mr. Trujillo is a 69 year old M Presents the ED with fever. Patient was sent in from the [facility] because he had a fever. He did not feel feverish. He went into the [facility] to get his second iron infusion for anemia related to his cancer. Pertinent history is on March 13 he went to the ER for weakness nausea dizziness headache shortness of breath. At that time he was found to have a hemoglobin of 4.2, a leukocytosis of 14. That time patient was transferred to [place] for GI bleed. While at the [place] where an EGD was done which showed a fungating ulcerating oozing mass 5 x 7 cm in the gastrium. He had a CT chest ab domen pelvis which showed a large gastric fundus mass measuring 7.7 with bulky confluent hepatic metastatic disease in all lobes of the liver. 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 He was discharged on the . Follow-up with Dr. Vidal. Dr. Hanson's in order to lower extremity venous Doppler which for bilateral lower extremity swelling which showed no DVTs. Follow-up with Dr. Lunyd his oncologist who needed more tissue for mutation studies. He underwent a CT-guided biopsy at [facility] on April 12. And today he went to the [facility] for follow-up visit. Because he had fever he was asked to go to the ER. In the ER was found to have a leukocytosis of 15, he also had a leukocytosis on the day he was transferred up to [place]. He is febrile with a temperature of 102, he had hemoglobin 7.1 and a sodium of 127. Liver enzymes elevated. Lactate was okay but procalcitonin was elevated although in the setting of metastatic cancer difficult to interpret procalcitonin results. Patient denies any blood in his stools Urinalysis unimpressive, no leukocyte Esterase or nitrites but did have WBCs. Patient denies dysuria Patient denies abdominal pain but states he feels a little bit more distended lately. No chest pain shortness of breath or coughing. He denies any blood in his stool. He has braces on his legs as he had polio as a child. He does have edema in his legs but he is had that off and on for quite a while. No change in the past month. Dr. Velazco did discuss the case with on-call oncologist Dr. Pacheco. Dr. Pacheco did mention that fever could simply be from the metastatic liver dz given that the case for bacterial peritonitis is pretty weak as well as a UTI. Patient does not have any respiratory symptoms whatsoever to indicate a consideration for coronavirus. Lower half of the lungs on CT abdomen/pelvis were unremarkable. Regardless we will treat empirically for infection and f/u labs and cultures. Patient will need to follow-up closely with oncologist and as it was suggested may need to start empiric treatment before the mutation studies are back given his rapid progression. 04/14 Patient does not feel feverish. No new pains or complaints. Sodium improved. Bilirubin mildly elevated. 04/15 No pains or complaints. Mild fever overnight, fever curve improving. Fluctuating leukocytosis although decreased today. Mild bandemia initially present has resolved. 04/16-fever defervesced. Between a lot better. 4-5 watery stools. White count down to 14.5. Sodium 132. LFTs downtrending. 04/17-GPC bacteremia. ID consulted. Continue vancomycin. Continued surveillance blood cultures. Remains afebrile. White count 14.5. LFTs elevated likely in the setting of metastatic infiltrative tumor. - Constitutional Vitals: Vital Signs Temp Pulse Resp BP Pulse Ox 98.3 F 62 18 138/72 97 04/17/20 08:00 04/17/20 08:00 04/17/20 08:00 04/17/20 08:00 04/17/20 08:00 Period Temp Pulse Resp BP Sys/Caldwell Pulse Ox Last 24 Hr 98.3 F-99.5 F 62-69 18-20 116-146/54-78 94-99 Intake and Output 04/16/20 04/17/20 04/17/20 21:59 05:59 13:59 Intake Total 250 840 Output Total 150 Balance 100 840 Weight 154 lb 3.2 oz Intake & Output: Intake & Output 04/16/20 04/17/20 04/17/20 21:59 05:59 13:59 Intake Total 250 840 Output Total 150 Balance 100 840 Weight 154 lb 3.2 oz Intake: IV 250 500 Vancomycin 1,000 mg In Sodium 250 Chloride 0.9% 250 ml @ 250 mls/ hr IV Q12H [facility] Rx#:[id number] Vancomycin 1,500 mg In Sodium 500 Chloride 0.9% 500 ml @ 333.3 mls/hr IV Q12H [facility] Rx#: [id number] Oral 340 Output: Void Amount 150 Other: Urine Color Dark Yellow Urine Odor Normal General appearance: no acute distress Exam: Alert oriented Nonlabored breathing Nontender nondistended abdomen Anxious Medical - PN: Obj Da - Labs CBC & Chem 7: 04/18/20 05:40 04/18/20 05:40 Labs: Abnormal Lab Results 04/16/20 04/16/20 04/16/20 05:17 05:17 05:17 WBC 14.5 H RBC 3.95 L Hgb 10.1 L Hct 32.3 L MCH 25.6 L MCHC RDW 20.3 H Plt Count 455 H Seg Neutrophils % 83 H Lymphocytes % 4 L Platelet Estimate Increased A RBC Morphology Abnorm A Polychromasia Few A Hypochromasia Anisocytosis 2+ A Microcytosis Few A ESR Sodium 132 L Calcium 7.5 L Phosphorus 2.2 L Direct Bilirubin 0.4 H GGT 260 H AST 68 H ALT 97 H Alkaline Phosphatase 374 H Lactate Dehydrogenase 365 H C-Reactive Protein 10.0 H Total Protein 5.2 L Albumin 2.2 L Albumin/Globulin Ratio 0.7 L 04/15/20 04/15/20 04/14/20 05:22 05:22 06:34 WBC 14.6 H RBC 3.79 L Hgb 9.7 L Hct 31.6 L MCH 25.6 L MCHC 30.7 L RDW 20.2 H Plt Count Seg Neutrophils % 87 H Lymphocytes % 4 L Platelet Estimate RBC Morphology Polychromasia Hypochromasia 1+ A Anisocytosis 1+ A Microcytosis ESR 45 H Sodium Calcium 7.5 L Phosphorus 2.2 L Direct Bilirubin 0.4 H GGT 207 H AST 50 H ALT 84 H Alkaline Phosphatase 272 H Lactate Dehydrogenase 317 H C-Reactive Protein Total Protein 5.1 L Albumin 2.0 L Albumin/Globulin Ratio 0.6 L Meds: Medications Acetaminophen (Tylenol) 650 mg PO Q6HP PRN PRN Reason: PAIN/FEVER > 101 Last Admin: 04/15/20 03:18 Dose: 650 mg Documented by: Albuterol/Ipratropium (Duoneb) 3 ml NEB Q4HP PRN PRN Reason: Shortness Of Breath Potassium Chloride 40 meq/ (Dextrose) 520 mls @ 130 mls/hr IV UD PRN PRN Reason: Potassium < 3 Magnesium Sulfate (Magnesium Sulfate) 2 gm in 50 mls @ 50 mls/hr IV UD PRN PRN Reason: Magnesium </= 1.6 Vancomycin HCl 1,500 mg/ (Sodium Chloride) 500 mls @ 333.3 mls/hr IV Q12H [facility] Last Admin: 04/17/20 08:55 Dose: 333.3 mls/hr Documented by: Lactobacillus Rhamnosus (Culturelle) 1 cap PO DAILY [facility] Last Admin: 04/17/20 08:55 Dose: 1 cap Documented by: Mupirocin (Bactroban Oint 2%) 1 dose NARES BID [facility] Last Admin: 04/17/20 08:55 Dose: 1 dose Documented by: Ondansetron HCl (Zofran) 4 mg IV Q4HP PRN PRN Reason: Nausea And Vomiting Pantoprazole [facility]odium [facility]ix) [facility] Last Admin: 04/17/20 06:55 Dose: 40 mg Documented by: Polyethylene Glycol (Miralax) 17 gm PO DAILYP PRN PRN Reason: Constipation Potassium Chloride (Kdur) 40 meq PO UD PRN PRN Reason: Potssium is 3-3.5 Last Admin: 04/16/20 00:15 Dose: 40 meq Documented by: Potassium Chloride (Kdur) 40 meq PO UD PRN PRN Reason: Potassium < 3 Sodium Chloride (Saline Flush) 10 ml IV Q8 [facility] Last Admin: 04/17/20 06:56 Dose: 10 ml Documented by: Sucralfate (Carafate) 1 gm PO [facility] Last Admin: 04/17/20 06:55 Dose: 1 gm Documented by: Vancomycin HCl (Vancomycin Per Pharmacy) 1 [place] [facility] [place] Protocol Medical - PN: A/P - Time Spent With Patient Total time spent is greater than 50% in coordination of care (as documented) at patient's floor/unit and/or counseling patient: 25 - 35 minutes - Narrative A/P Narrative: A: * Gram-positive bacteremia-surveillance cultures ongoing. ID consulted. On vancomycin. * Severe sepsis second above clinically improving. White count 14.5 * Transaminitis/Hyperbili: 2/2 tumor, metastatic disease. 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 was supposed to get 2nd infusion today. 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 Lundy * Physical debility from polio as a child: occasionally uses and cane and uses leg braces * Early COPD. Non-oxygen dependent. Stable P: * Continue IV vancomycin * Further infectious work-up per ID * case discussed with Oncologist (Dr. Pacheco, on-call for Dr. Lundy) recommended treating empirically for infection and f/u with oncology as soon as discharged as will likely need to start empiric treatment rather than wait for mutation studies given the rapid progression. * Scheduled f/u with oncology outpt on discharge * ppx: SCD/Ambulation Medical - PN: Qual - Stroke Symptom Onset Unknown: No - VTE Deep Vein Thrombosis/Pulmonary Embolism Present on Admission: No
[2020-04-17 10:52] LABS: Hematocrit 31.8 % (40.1-51.0); Hemoglobin 9.9 g/dL (13.7-17.5); Mean Cell Volume 82.4 fL (80.0-100.0); Mean Corpuscular HGB Conc 31.1 g/dL (31.0-36.0); Mean Platelet Volume 9.4 fL (7.4-10.4); Platelet Count 495 K/mcL (140-440); RBC 3.86 M/mcL (4.63-6.08); Red Cell Distribution Width 20.5 % (11.5-14.5); WBC 13.3 K/mcL (4.50-11.00)
[2020-04-17 11:54] LABS: Anisocytosis 2+ (NONE SEEN); Hypochromasia 2+ (NONE SEEN); Lymphocytes % 5 % (15-49); Monocytes % (Manual) 7 % (1-12); Platelet Estimate INCREASED (NORMAL); RBC Morphology ABNORM (NORMAL); Segmented Neutrophils % 88 % (38-78)
--- NOTE | 2020-04-17 15:17 | Infectious Disease Prog Note ---
Subjective Patient information: Note initiated : 04/17/20 at 3:06 pm Service Date, if different from initiated Date: [] Patient: Florentino Trujillo 69 y/o M admitted on 04/13/20 for fever. Chief Complaint: [] Interval history: Pt feels better. Denied any fever, chills, n/v/diarrhea. C/o swelling in his scrotum. Endorses some belly discomfort, but rates it as mild. Able to move around without any difficulty/pain. Objective Objective Narrative: ao x 3, in nad no thrush chest cta (anterior lung smart only) s1 s2 normal, no m/r/g bs ++, nttd, no rebound or guarding no pitting edema over left leg has some scrotal edema - Vital Signs Vital signs: Vital Signs Temp Pulse Resp BP Pulse Ox 04/17/20 12:00 37.2 C 66 18 142/76 95 04/17/20 08:00 36.8 C 62 18 138/72 97 04/17/20 04:25 37.1 C 68 18 131/76 96 04/16/20 23:04 37.5 C H 64 18 128/62 95 04/16/20 19:18 37.1 C 69 20 116/54 94 04/16/20 16:00 36.9 C 68 18 146/70 99 Intake and Output 04/17/20 04/17/20 04/17/20 05:59 13:59 21:59 Intake Total 840 700 Balance 840 700 Intake: IV 500 500 Vancomycin 1,500 mg In Sodium 500 500 Chloride 0.9% 500 ml @ 333.3 mls/hr IV Q12H [facility] Rx#: [id number] Oral 340 200 Other: Meal Breakfast Percent of Meal Consumed 75% Intake & Output: Intake & Output 04/17/20 04/17/20 04/17/20 05:59 13:59 21:59 Intake Total 840 700 Balance 840 700 Intake: IV 500 500 Vancomycin 1,500 mg In Sodium 500 500 Chloride 0.9% 500 ml @ 333.3 mls/hr IV Q12H [facility] Rx#: [id number] Oral 340 200 Other: Meal Breakfast Percent of Meal Consumed 75% - Lab 04/17/20 10:05 04/16/20 05:17 Most recent lab results Calcium 7.5 mg/dl (8.6-10.4) L 04/16/20 05:17 Phosphorus 2.2 mg/dL (2.7-4.5) L 04/16/20 05:17 Magnesium 2.0 mg/dL (1.6-2.5) 04/16/20 05:17 Microbiology 04/16/20 12:43 Blood Blood Culture - Preliminary 04/16/20 12:48 Blood Blood Culture - Preliminary 04/13/20 16:55 Blood Blood Culture - Preliminary Gram positive cocci 04/13/20 16:50 Blood Blood Culture - Preliminary Gram positive cocci 04/13/20 15:40 Urine - Clean Void Mid-Stream Urine Culture - Final 04/13/20 07:11 Nose MRSA (PCR) - Final MRSA PCR positive Medications Active Medications: Acetaminophen (Tylenol) 650 mg PO Q6HP PRN PRN Reason: PAIN/FEVER > 101 Last Admin: 04/15/20 03:18 Dose: 650 mg Documented by: Admin: 04/14/20 08:47 Dose: 650 mg Documented by: CAROLYN Albuterol/Ipratropium (Duoneb) 3 ml NEB Q4HP PRN PRN Reason: Shortness Of Breath Potassium Chloride 40 meq/ (Dextrose) 520 mls @ 130 mls/hr IV UD PRN PRN Reason: Potassium < 3 Magnesium Sulfate (Magnesium Sulfate) 2 gm in 50 mls @ 50 mls/hr IV UD PRN PRN Reason: Magnesium </= 1.6 Vancomycin HCl 1,500 mg/ (Sodium Chloride) 500 mls @ 333.3 mls/hr IV Q12H [facility] Last Infusion: 04/17/20 10:58 Dose: 0 mls/hr Documented by: [email or web address] Admin: 04/17/20 08:55 Dose: 333.3 mls/hr Documented by: [email or web address] Infusion: 04/16/20 23:02 Dose: 333.3 mls/hr Documented by: [email or web address] Admin: 04/16/20 21:31 Dose: 333.3 mls/hr Documented by: [email or web address] Lactobacillus Rhamnosus (Culturelle) 1 cap PO DAILY [facility] Last Admin: 04/17/20 08:55 Dose: 1 cap Documented by: [email or web address] Admin: 04/16/20 09:32 Dose: 1 cap Documented by: Admin: 04/15/20 09:09 Dose: 1 cap Documented by: Admin: 04/14/20 08:47 Dose: 1 cap Documented by: CAROLYN Mupirocin (Bactroban Oint 2%) 1 dose NARES BID [facility] Admin: 04/17/20 08:55 Dose: 1 dose Documented by: [email or web address] Admin: 04/16/20 21:33 Dose: 1 dose Documented by: Admin: 04/16/20 07:19 Dose: 1 dose Documented by: Admin: 04/15/20 21:12 Dose: 1 dose Documented by: Admin: 04/15/20 09:09 Dose: 1 dose Documented by: Admin: 04/14/20 21:25 Dose: 1 dose Documented by: CHERRY Ondansetron HCl (Zofran) 4 mg IV Q4HP PRN PRN Reason: Nausea And Vomiting Pantoprazole Sodium (Protonix) 40 mg PO QAMAC [facility] Admin: 04/17/20 06:55 Dose: 40 mg Documented by: Admin: 04/16/20 07:18 Dose: 40 mg Documented by: Admin: 04/15/20 07:55 Dose: 40 mg Documented by: NOÉ Polyethylene Glycol (Miralax) 17 gm PO DAILYP PRN PRN Reason: Constipation Potassium Chloride (Kdur) 40 meq PO UD PRN PRN Reason: Potssium is 3-3.5 Last Admin: 04/16/20 00:15 Dose: 40 meq Documented by: MOY Potassium Chloride (Kdur) 40 meq PO UD PRN PRN Reason: Potassium < 3 Sodium Chloride (Saline Flush) 10 ml IV Q8 [facility] Admin: 04/17/20 13:30 Dose: 10 ml Documented by: [email or web address] Admin: 04/17/20 06:56 Dose: 10 ml Documented by: [id number] Admin: 04/16/20 21:33 Dose: 10 ml Documented by: Admin: 04/16/20 14:53 Dose: 10 ml Documented by: Admin: 04/16/20 05:53 Dose: 10 ml Documented by: Admin: 04/15/20 21:13 Dose: 10 ml Documented by: Admin: 04/15/20 15:33 Dose: 10 ml Documented by: Admin: 04/15/20 04:11 Dose: 10 ml Documented by: Admin: 04/14/20 21:25 Dose: 10 ml Documented by: Admin: 04/14/20 13:43 Dose: Not Given Documented by: CAROLYN Non-Admin Reason: Continuous IV Admin: 04/14/20 05:51 Dose: Not Given Documented by: ERICA Non-Admin Reason: Continuous IV Admin: 04/13/20 23:48 Dose: Not Given Documented by: ERICA Non-Admin Reason: Continuous IV Sucral[facility] ([facility]ate) [facility] Last Admin: 04/17/20 06:55 Dose: 1 gm Documented by: [email or web address] Admin: 04/16/20 07:18 Dose: 1 gm Documented by: Admin: 04/15/20 07:55 Dose: 1 gm Documented by: NOÉ Vancomycin HCl (Vancomycin Per Pharmacy) 1 order IV [facility] [place]; Protocol Assessment and Plan - Narrative A/P Narrative: A: 1. Streptococcus anginosus bacteremia: 2/2 blood Cx +ve on 04/13/20 - likely source GI tract, given history of GI bleed and GIST - on IV Vanc (until today) and IV Cefepime (until 04/16) - clinically improving, with downtrending fever curve and WBC 2. 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 GIST: CT abd/pelvis on 04/13/20: Large mass, originating from the posterior wall of the gastric fundus, has increased rapidly from 8 to 10 cm in less than one month. It is suspicious for either primary gastric carcinoma or GIST tumor. Multiple large metastases, widely disseminated throughout the liver, have also increased dramatically in size and number and just less than one month. Multiple moderately enlarged lymph nodes in the upper abdomen have also increased. - pt has ascites and scrotal edema Recommendations: - Stop IV Vanc - Start IV Ceftriaxone 2 gm q24 hrs - If repeat blood Cx from 04/16/20 neg by tomorrow, a midline can be placed - anticipate 2 weeks of IV Ceftriaxone counting from 1st day of neg blood Cx - MRSA decolonization for 5 days with intransal mupirocin 2% bid and below neck whole body CHG wipes (2%) once daily, day 4/5 - scrotal elev for scrotal edema will follow Chandan Tomlinson MD Infectious diseases
[2020-04-17] MEDS: cefTRIAXone 2 GM in DEXTROSE 5% IN WATER 50 ML IV SCH (15:26)
[2020-04-18] MEDS: 0.9 % SODIUM CHLORIDE 10 ML SYRINGE IV SCH ×3 (06:40→20:56)
[2020-04-18 07:06] LABS: Hematocrit 31.2 % (40.1-51.0); Hemoglobin 9.7 g/dL (13.7-17.5); Mean Cell Volume 81.7 fL (80.0-100.0); Mean Corpuscular HGB Conc 31.1 g/dL (31.0-36.0); Mean Platelet Volume 9.4 fL (7.4-10.4); Platelet Count 619 K/mcL (140-440); RBC 3.82 M/mcL (4.63-6.08); Red Cell Distribution Width 20.8 % (11.5-14.5); WBC 13.4 K/mcL (4.50-11.00)
[2020-04-18] MEDS: PANTOPRAZOLE 40 MG TABLET PO SCH (07:22)
[2020-04-18] MEDS: SUCRALFATE 1 GM TABLET PO SCH (07:22)
[2020-04-18 07:41] LABS: ALT/SGPT 96 U/l (0-40); AST/SGOT 68 U/l (0-37); Albumin 2.2 gm/dL (3.2-5.2); Albumin/Globulin Ratio 0.7 (1.0-2.3); Alkaline Phosphatase 449 U/L (39-117); Bilirubin,Total 0.6 mg/dL (0.0-1.0); Blood Urea Nitrogen 11 mg/dl (8-23); Calcium 7.5 mg/dl (8.6-10.4); Carbon Dioxide 24 mmol/L (22-30); Chloride 101 mmol/L (96-108); Globulin 3.1 gm/dL (2.2-3.7); Glomerular Filtration Rate 98; Glucose 103 mg/dL (70-105); Lactate Dehydrogenase 378 U/L (94-250); Triglycerides 61 mg/dl (<150); Uric Acid 3.1 mg/dL (2.5-8.0)
[2020-04-18 07:44] LABS: Bilirubin,Direct 0.3 mg/dL (0.0-0.3); Phosphorous 2.2 mg/dL (2.7-4.5)
[2020-04-18 08:01] LABS: Anisocytosis 2+ (NONE SEEN); Eosinophils % (Manual) 2 % (0-7); Hypochromasia FEW (NONE SEEN); Lymphocytes % 9 % (15-49); Microcytosis FEW (NONE SEEN); Monocytes % (Manual) 4 % (1-12); Ovalocytes FEW (NONE SEEN); Platelet Estimate INCREASED (NORMAL); RBC Morphology ABNORM (NORMAL); Segmented Neutrophils % 85 % (38-78)
[2020-04-18] MEDS: cefTRIAXone 2 GM in DEXTROSE 5% IN WATER 50 ML IV SCH (08:47)
[2020-04-18] MEDS: LACTOBACILLUS 1 CAPSULE PO SCH (08:48)
[2020-04-18] MEDS: MUPIROCIN OINT 2% 22GM NARES SCH ×2 (08:48→20:56)
[2020-04-18] MEDS: NEUTRA PHOS 1 PACKET PO SCH ×2 (09:24→20:57)
--- NOTE | 2020-04-18 10:04 | Internal Med Progress Note ---
Medical - PN: Subj Patient information: Note initiated : 04/18/20 at 10:02 am Service Date, if different from initiated Date: [] Patient: Florentino Trujillo 69 y/o M admitted on 04/13/20 for fever. Chief Complaint: [] Interval history: Mr. Trujillo is a 69 year old M Presents the ED with fever. Patient was sent in from the [facility] because he had a fever. He did not feel feverish. He went into the [facility] to get his second iron infusion for anemia related to his cancer. Pertinent history is on March 13 he went to the ER for weakness nausea dizziness headache shortness of breath. At that time he was found to have a hemoglobin of 4.2, a leukocytosis of 14. That time patient was transferred to [place] for GI bleed. While at the [place] where an EGD was done which showed a fungating ulcerating oozing mass 5 x 7 cm in the gastrium. He had a CT chest a bdomen pelvis which showed a large gastric fundus mass measuring 7.7 with bulky confluent hepatic metastatic disease in all lobes of the liver. 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 He was discharged on the . Follow-up with Dr. Vidal. Dr. Hanson's in order to lower extremity venous Doppler which for bilateral lower extremity swelling which showed no DVTs. Follow-up with Dr. Lundy his oncologist who needed more tissue for mutation studies. He underwent a CT-guided biopsy at [facility] on April 12. And today he went to the [facility] for follow-up visit. Because he had fever he was asked to go to the ER. In the ER was found to have a leukocytosis of 15, he also had a leukocytosis on the day he was transferred up to [place]. He is febrile with a temperature of 102, he had hemoglobin 7.1 and a sodium of 127. Liver enzymes elevated. Lactate was okay but procalcitonin was elevated although in the setting of metastatic cancer difficult to interpret procalcitonin results. Patient denies any blood in his stools Urinalysis unimpressive, no leukocyte Esterase or nitrites but did have WBCs. Patient denies dysuria Patient denies abdominal pain but states he feels a little bit more distended lately. No chest pain shortness of breath or coughing. He denies any blood in his stool. He has braces on his legs as he had polio as a child. He does have edema in his legs but he is had that off and on for quite a while. No change in the past month. Dr. Velazco did discuss the case with on-call oncologist Dr. Pacheco. Dr. Pacheco did mention that fever could simply be from the metastatic liver dz given that the case for bacterial peritonitis is pretty weak as well as a UTI. Patient does not have any respiratory symptoms whatsoever to indicate a consideration for coronavirus. Lower half of the lungs on CT abdomen/pelvis were unremarkable. Regardless we will treat empirically for infection and f/u labs and cultures. Patient will need to follow-up closely with oncologist and as it was suggested may need to start empiric treatment before the mutation studies are back given his rapid progression. 04/14 Patient does not feel feverish. No new pains or complaints. Sodium improved. Bilirubin mildly elevated. 04/15 No pains or complaints. Mild fever overnight, fever curve improving. Fluctuating leukocytosis although decreased today. Mild bandemia initially present has resolved. 04/16-fever defervesced. Between a lot better. 4-5 watery stools. White count down to 14.5. Sodium 132. LFTs downtrending. 04/17-GPC bacteremia. ID consulted. Continue vancomycin. Continued surveillance blood cultures. Remains afebrile. White count 14.5. LFTs elevated likely in the setting of metastatic infiltrative tumor. 04/18-intermittent fever. Cultures Streptococcus intermedius. Surveillance cultures negative so far. Await antibiotic commendations. Will likely discharge in 24 hours with outpatient antibiotics as per ID. White count of 13.4. Sodium 134. LFT remains elevated due to infiltrative tumor. - Constitutional Vitals: Vital Signs Temp Pulse Resp BP Pulse Ox 99.1 F H 62 18 135/75 96 04/18/20 07:42 04/18/20 07:42 04/18/20 07:42 04/18/20 07:42 04/18/20 07:42 Period Temp Pulse Resp BP Sys/Caldwell Pulse Ox Last 24 Hr 98.9 F-99.8 F 62-67 18-24 125-142/60-78 93-96 Intake and Output 04/17/20 04/18/20 04/18/20 21:59 05:59 13:59 Intake Total 1090 350 410 Balance 1090 350 410 Weight 159 lb 14.4 oz Intake & Output: Intake & Output 04/17/20 04/18/20 04/18/20 21:59 05:59 13:59 Intake Total 1090 350 410 Balance 1090 350 410 Weight 159 lb 14.4 oz Intake: IV 50 50 Rocephin 2 gm In Dextrose 5% in 50 50 Water 50 ml @ 100 mls/hr IV Q24H [facility] Rx#:[id number] Oral 1040 350 360 Other: Meal Dinner Breakfast Percent of Meal Consumed 100% 100% Feeding Ability Independent Independent # Voids 2 3 General appearance: no acute distress Exam: Alert and oriented Nonlabored breathing No anxiety Minimally tender abdomen Medical - PN: Obj Da - Labs CBC & Chem 7: 04/18/20 05:40 04/18/20 05:40 Labs: Abnormal Lab Results 04/18/20 04/18/20 04/17/20 05:40 05:40 10:05 WBC 13.4 H 13.3 H RBC 3.82 L 3.86 L Hgb 9.7 L 9.9 L Hct 31.2 L 31.8 L MCH 25.4 L 25.6 L RDW 20.8 H 20.5 H Plt Count 619 H 495 H Seg Neutrophils % 85 H 88 H Lymphocytes % 9 L 5 L Platelet Estimate Increased A Increased A RBC Morphology Abnorm A Abnorm A Polychromasia Hypochromasia Few A 2+ A Anisocytosis 2+ A 2+ A Microcytosis Few A Ovalocytes Few A Sodium Calcium 7.5 L Phosphorus 2.2 L Direct Bilirubin GGT 327 H AST 68 H ALT 96 H Alkaline Phosphatase 449 H Lactate Dehydrogenase 378 H C-Reactive Protein Total Protein 5.3 L Albumin 2.2 L Albumin/Globulin Ratio 0.7 L 04/16/20 04/16/20 04/16/20 05:17 05:17 05:17 WBC 14.5 H RBC 3.95 L Hgb 10.1 L Hct 32.3 L MCH 25.6 L RDW 20.3 H Plt Count 455 H Seg Neutrophils % 83 H Lymphocytes % 4 L Platelet Estimate Increased A RBC Morphology Abnorm A Polychromasia Few A Hypochromasia Anisocytosis 2+ A Microcytosis Few A Ovalocytes Sodium 132 L Calcium 7.5 L Phosphorus 2.2 L Direct Bilirubin 0.4 H GGT 260 H AST 68 H ALT 97 H Alkaline Phosphatase 374 H Lactate Dehydrogenase 365 H C-Reactive Protein 10.0 H Total Protein 5.2 L Albumin 2.2 L Albumin/Globulin Ratio 0.7 L Meds: Medications Acetaminophen (Tylenol) 650 mg PO Q6HP PRN PRN Reason: PAIN/FEVER > 101 Last Admin: 04/15/20 03:18 Dose: 650 mg Documented by: Albuterol/Ipratropium (Duoneb) 3 ml NEB Q4HP PRN PRN Reason: Shortness Of Breath Potassium Chloride 40 meq/ (Dextrose) 520 mls @ 130 mls/hr IV UD PRN PRN Reason: Potassium < 3 Magnesium Sulfate (Magnesium Sulfate) 2 gm in 50 mls @ 50 mls/hr IV UD PRN PRN Reason: Magnesium </= 1.6 Ceftriaxone Sodium 2 gm/ (Dextrose) 50 mls @ 100 mls/hr IV Q24H [facility]; Protocol Last Infusion: 04/18/20 09:25 Dose: Infused Documented by: Lactobacillus Rhamnosus (Culturelle) 1 cap PO DAILY [facility] Last Admin: 04/18/20 08:48 Dose: 1 cap Documented by: Mupirocin (Bactroban Oint 2%) 1 dose NARES BID [facility] Last Admin: 04/18/20 08:48 Dose: 1 dose Documented by: Ondansetron HCl (Zofran) 4 mg IV Q4HP PRN PRN Reason: Nausea And Vomiting Pantoprazole Sodium (Protonix) 40 mg PO QAMAC [facility] Last Admin: 04/18/20 07:22 Dose: 40 mg Documented by: Polyethylene Glycol (Miralax) 17 gm PO DAILYP PRN PRN Reason: Constipation Potassium Chloride (Kdur) 40 meq PO UD PRN PRN Reason: Potssium is 3-3.5 Last Admin: 04/16/20 00:15 Dose: 40 meq Documented by: Potassium Chloride (Kdur) 40 meq PO UD PRN PRN Reason: Potassium < 3 Potassium/Phosphorus/Sodium (Neutra Phos) 2 packet PO BID [facility] Stop: 04/19/20 21:01 Last Admin: 04/18/20 09:24 Dose: 2 packet Documented by: Sodium Chloride (Saline Flush) 10 ml IV Q8 [facility] Last Admin: 04/18/20 06:40 Dose: Not Given Documented by: Sucralfate (Carafate) 1 gm PO QAMAC [facility] Last Admin: 04/18/20 07:22 Dose: 1 gm Documented by: Medical - PN: A/P - Time Spent With Patient Total time spent is greater than 50% in coordination of care (as documented) at patient's floor/unit and/or counseling patient: 25 - 35 minutes - Narrative A/P Narrative: A: * Streptococcus intermedius bacteremia-surveillance cultures negative so far. On antibiotics as per ID recommendations. PICC line placement today * Severe sepsis second above clinically improving. White count 13.5 * Transaminitis/Hyperbili: 2/2 infiltrative tumor, metastatic disease. 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 was supposed to get 2nd infusion today. 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 Lundy oncology * Physical debility from polio as a child: occasionally uses and cane and uses leg braces * Early COPD. Non-oxygen dependent. Stable P: * Continue IV vancomycin * Further infectious work-up per ID * case discussed with Oncologist (Dr. Pacheco, on-call for Dr. Lundy) recommended treating empirically for infection and f/u with oncology as soon as discharged as will likely need to start empiric treatment rather than wait for mutation studies given the rapid progression. * Scheduled f/u with oncology outpt on discharge * ppx: SCD/Ambulation Medical - PN: Qual - Stroke Symptom Onset Unknown: No - VTE Deep Vein Thrombosis/Pulmonary Embolism Present on Admission: No
--- NOTE | 2020-04-18 20:59 | Infectious Disease Prog Note ---
Subjective Patient information: Note initiated : 04/18/20 at 8:56 pm Service Date, if different from initiated Date: [] Patient: Florentino Trujillo 69 y/o M admitted on 04/13/20 for fever. Chief Complaint: [] Interval history: Pt feels better than yesterday. Denied any fevers, chills, n/v, diarrhea. Endorses scrotal and leg swelling. Endorses belly discomfort. Objective Objective Narrative: ao x 3, in nad chest cta s1 loud, s2 normal, no m/r/g bs ++, non tender, distended, with dullness to percussion at flanks scrotal edema without any redness + leg edema b/l - Vital Signs Vital signs: Vital Signs Temp Pulse Resp BP BP Pulse Ox 04/18/20 18:49 37.7 C H 73 24 H 145/71 95 04/18/20 15:28 37.8 C H 69 18 132/71 97 04/18/20 12:00 36.9 C 65 18 142/76 98 04/18/20 07:42 37.3 C H 62 18 135/75 96 04/18/20 04:28 37.4 C H 67 22 137/78 95 04/17/20 23:41 37.6 C H 65 22 138/63 95 Intake and Output 04/18/20 04/18/20 04/18/20 05:59 13:59 21:59 Intake Total 228 120 2422 Balance 027 301 0150 Intake: IV 50 Rocephin 2 gm In Dextrose 5% in 50 Water 50 ml @ 100 mls/hr IV Q24H [facility] Rx#:[id number] Oral 162 804 5689 Other: Meal Lunch Dinner Percent of Meal Consumed 100% 100% Feeding Ability Independent Independent # Voids 3 1 Weight 72.983 kg Patient Weight 04/19/20 05:59 Weight 72.983 kg Intake & Output: Intake & Output 04/18/20 04/18/20 04/18/20 05:59 13:59 21:59 Intake Total 553 382 1720 Balance 109 137 1002 Weight 72.983 kg Intake: IV 50 Rocephin 2 gm In Dextrose 5% in 50 Water 50 ml @ 100 mls/hr IV Q24H [facility] Rx#:[id number] Oral 126 032 [id number] Other: Meal Lunch Dinner Percent of Meal Consumed 100% 100% Feeding Ability Independent Independent # Voids 3 1 - Lab 04/18/20 05:40 04/18/20 05:40 Most recent lab results Calcium 7.5 mg/dl (8.6-10.4) L 04/18/20 05:40 Phosphorus 2.2 mg/dL (2.7-4.5) L 04/18/20 05:40 Magnesium 2.0 mg/dL (1.6-2.5) 04/18/20 05:40 Microbiology 04/13/20 16:55 Blood Blood Culture - Preliminary Streptococcus intermedius 04/16/20 12:43 Blood Blood Culture - Preliminary 04/16/20 12:48 Blood Blood Culture - Preliminary 04/17/20 10:05 Blood Blood Culture - Preliminary 04/17/20 10:10 Blood Blood Culture - Preliminary 04/13/20 16:50 Blood Blood Culture - Preliminary Streptococcus intermedius 04/13/20 15:40 Urine - Clean Void Mid-Stream Urine Culture - Final 04/13/20 07:11 Nose MRSA (PCR) - Final MRSA PCR positive Medications Active Medications: Acetaminophen (Tylenol) 650 mg PO Q6HP PRN PRN Reason: PAIN/FEVER > 101 Last Admin: 04/15/20 03:18 Dose: 650 mg Documented by: Admin: 04/14/20 08:47 Dose: 650 mg Documented by: CAROLYN Albuterol/Ipratropium (Duoneb) 3 ml NEB Q4HP PRN PRN Reason: Shortness Of Breath Heparin Sodium (Porcine) (Heparin 10 Units/Ml Flush) 2 ml IV Q12 [facility] Potassium Chloride 40 meq/ (Dextrose) 520 mls @ 130 mls/hr IV UD PRN PRN Reason: Potassium < 3 Magnesium Sulfate (Magnesium Sulfate) 2 gm in 50 mls @ 50 mls/hr IV UD PRN PRN Reason: Magnesium </= 1.6 Ceftriaxone Sodium 2 gm/ (Dextrose) 50 mls @ 100 mls/hr IV Q24H [facility]; Protocol Last Infusion: 04/18/20 09:25 Dose: 0 mls/hr Documented by: Admin: 04/18/20 08:47 Dose: 100 mls/hr Documented by: Infusion: 04/17/20 15:56 Dose: 100 mls/hr Documented by: Admin: 04/17/20 15:26 Dose: 100 mls/hr Documented by: [id number] Lactobacillus Rhamnosus (Culturelle) 1 cap PO DAILY [facility] Admin: 04/18/20 08:48 Dose: 1 cap Documented by: Admin: 04/17/20 08:55 Dose: 1 cap Documented by: Admin: 04/16/20 09:32 Dose: 1 cap Documented by: Admin: 04/15/20 09:09 Dose: 1 cap Documented by: Admin: 04/14/20 08:47 Dose: 1 cap Documented by: CAROLYN Mupirocin (Bactroban Oint 2%) 1 dose NARES BID [facility] Admin: 04/18/20 08:48 Dose: 1 dose Documented by: Admin: 04/17/20 21:08 Dose: 1 dose Documented by: Admin: 04/17/20 08:55 Dose: 1 dose Documented by: Admin: 04/16/20 21:33 Dose: 1 dose Documented by: Admin: 04/16/20 07:19 Dose: 1 dose Documented by: Admin: 04/15/20 21:12 Dose: 1 dose Documented by: Admin: 04/15/20 09:09 Dose: 1 dose Documented by: Admin: 04/14/20 21:25 Dose: 1 dose Documented by: CHERRY Ondansetron HCl (Zofran) 4 mg IV Q4HP PRN PRN Reason: Nausea And Vomiting Pantoprazole Sodium (Protonix) 40 mg PO QAMAC [facility] Admin: 04/18/20 07:22 Dose: 40 mg Documented by: Admin: 04/17/20 06:55 Dose: 40 mg Documented by: Admin: 04/16/20 07:18 Dose: 40 mg Documented by: Admin: 04/15/20 07:55 Dose: 40 mg Documented by: NOÉ Polyethylene Glycol (Miralax) 17 gm PO DAILYP PRN PRN Reason: Constipation Potassium Chloride (Kdur) 40 meq PO UD PRN PRN Reason: Potssium is 3-3.5 Last Admin: 04/16/20 00:15 Dose: 40 meq Documented by: MOY Potassium Chloride (Kdur) 40 meq PO UD PRN PRN Reason: Potassium < 3 Potassium/Phosphorus/Sodium (Neutra Phos) 2 packet PO BID [facility] Stop: 04/19/20 21:01 Last Admin: 04/18/20 09:24 Dose: 2 packet Documented by: ERIN Sodium Chloride (Saline Flush) 10 ml IV Q8 [facility] Last Admin: 04/18/20 13:25 Dose: 10 ml Documented by: Admin: 04/18/20 06:40 Dose: Not Given Documented by: ERIN Non-Admin Reason: Chest Pain Admin: 04/17/20 21:08 Dose: 10 ml Documented by: Admin: 04/17/20 13:30 Dose: 10 ml Documented by: Admin: 04/17/20 06:56 Dose: 10 ml Documented by: Admin: 04/16/20 21:33 Dose: 10 ml Documented by: Admin: 04/16/20 14:53 Dose: 10 ml Documented by: Admin: 04/16/20 05:53 Dose: 10 ml Documented by: Admin: 04/15/20 21:13 Dose: 10 ml Documented by: Admin: 04/15/20 15:33 Dose: 10 ml Documented by: Admin: 04/15/20 04:11 Dose: 10 ml Documented by: Admin: 04/14/20 21:25 Dose: 10 ml Documented by: Admin: 04/14/20 13:43 Dose: Not Given Documented by: CAROLYN Non-Adeola Reason: Continuous IV Admin: 04/14/20 05:51 Dose: Not Given Documented by: ERICA Non-Adeola Reason: Continuous IV Admin: 04/13/20 23:48 Dose: Not Given Documented by: ERICA Non-Admin Reason: Continuous IV Sucralfate (Carafate) 1 gm PO QAMAC [facility] Last Admin: 04/18/20 07:22 Dose: 1 gm Documented by: Admin: 04/17/20 06:55 Dose: 1 gm Documented by: Admin: 04/16/20 07:18 Dose: 1 gm Documented by: Admin: 04/15/20 07:55 Dose: 1 gm Documented by: NOÉ Assessment and Plan - Narrative A/P Narrative: A: 1. Streptococcus anginosus bacteremia: 2/2 blood Cx +ve on 04/13/20 - likely source GI tract, given history of GI bleed and GIST - on IV Vanc (until 04/17) and IV Cefepime (until 04/16) - clinically improving, with downtrending fever curve and WBC 2. 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 GIST: CT abd/pelvis on 04/13/20: Large mass, originating from the posterior wall of the gastric fundus, has increased rapidly from 8 to 10 cm in less than one month. It is suspicious for either primary gastric carcinoma or GIST tumor. Multiple large metastases, widely disseminated throughout the liver, have also increased dramatically in size and number and just less than one month . Multiple moderately enlarged lymph nodes in the upper abdomen have also increased. - pt has ascites and scrotal edema Recommendations: - Continue IV Ceftriaxone 2 gm q24 hrs - Consider midline placement - anticipate 2 weeks of IV Ceftriaxone counting from 1st day of neg blood Cx, with stop date of 04/30/20 - MRSA decolonization for 5 days with intransal mupirocin 2% bid and below neck whole body CHG wipes (2%) once daily, day 5/5 - scrotal elev for scrotal edema No ID f/u needed. Pt counseled to call me ([phone], [facility]) in case he has diarrhea, or high fevers (temp >38.2C) or problems with midline Chandan Tomlinson MD Infectious diseases
[2020-04-18] MEDS ORDERED: 0.9 % SODIUM CHLORIDE 10 ML SYRINGE IV SCH (21:00)
[2020-04-18] MEDS: ACETAMINOPHEN 325 MG TABLET PO PRN (23:53)
[2020-04-19] MEDS: 0.9 % SODIUM CHLORIDE 10 ML SYRINGE IV SCH (04:22)
[2020-04-19 06:36] LABS: Hematocrit 32.2 % (40.1-51.0); Hemoglobin 9.8 g/dL (13.7-17.5); Mean Corpuscular HGB Conc 30.4 g/dL (31.0-36.0); Platelet Count 700 K/mcL (140-440); RBC 3.88 M/mcL (4.63-6.08); Red Cell Distribution Width 21.1 % (11.5-14.5); WBC 13.3 K/mcL (4.50-11.00)
[2020-04-19 06:59] LABS: ALT/SGPT 82 U/l (0-40); AST/SGOT 55 U/l (0-37); Albumin/Globulin Ratio 0.6 (1.0-2.3); Alkaline Phosphatase 441 U/L (39-117); Bilirubin,Direct 0.3 mg/dL (0.0-0.3); Bilirubin,Total 0.5 mg/dL (0.0-1.0); Blood Urea Nitrogen 10 mg/dl (8-23); Calcium 7.7 mg/dl (8.6-10.4); Carbon Dioxide 26 mmol/L (22-30); Chloride 99 mmol/L (96-108); Globulin 3.3 gm/dL (2.2-3.7); Glomerular Filtration Rate 92; Glucose 101 mg/dL (70-105); Lactate Dehydrogenase 450 U/L (94-250); Triglycerides 62 mg/dl (<150); Uric Acid 3.4 mg/dL (2.5-8.0)
[2020-04-19 07:00] LABS: Phosphorous 3.1 mg/dL (2.7-4.5)
[2020-04-19] MEDS: PANTOPRAZOLE 40 MG TABLET PO SCH (07:24)
[2020-04-19] MEDS: SUCRALFATE 1 GM TABLET PO SCH (07:24)
[2020-04-19 08:05] LABS: Anisocytosis 2+ (NONE SEEN); Eosinophils % (Manual) 2 % (0-7); Hypochromasia 1+ (NONE SEEN); Lymphocytes % 11 % (15-49); Monocytes % (Manual) 2 % (1-12); Platelet Estimate INCREASED (NORMAL); RBC Morphology ABNORM (NORMAL); Segmented Neutrophils % 85 % (38-78)
[2020-04-19] MEDS ORDERED: MULTIVIT,THER IRON,CA,FA & MIN 1 TABLET PO SCH (09:00)
[2020-04-19] MEDS: LACTOBACILLUS 1 CAPSULE PO SCH (09:19)
[2020-04-19] MEDS: MUPIROCIN OINT 2% 22GM NARES SCH (09:19)
[2020-04-19] MEDS: NEUTRA PHOS 1 PACKET PO SCH (09:20)
[2020-04-19] MEDS: cefTRIAXone 2 GM in DEXTROSE 5% IN WATER 50 ML IV SCH (09:20)
--- NOTE | 2020-04-19 09:34 | Discharge Summary ---
Medical - DS: Prov Patient information: Note initiated : 04/19/20 at 9:31 am Service Date, if different from initiated Date: [] Patient: Florentino Trujillo 69 y/o M admitted on 04/13/20 for fever. Chief Complaint: [] Date of admission: 04/13/20 21:34 Discharge date: 04/19/20 Primary care physician: EVA Ballard Consults: 04/13/20 Consult to Physician [CONS] Stat Comment: Consulting Provider: Trent Hoyt Reason For Exam: Physician to Consult 04/15/20 09:08 Consult to Physician [CONS] Routine Comment: prostate CA, known pt Consulting Provider: Ino Paula Reason For Exam: Physician to Consult 04/16/20 12:31 Consult to Physician [CONS] Urgent Comment: Consulting Provider: Chandan Tomlinson Reason For Exam: Physician to Consult Medical - DS: Meds - Discharge Medications Prescriptions: cefTRIAXone [Rocephin] 2 gm IV Q24H #11 vial Prescription Printed Active and Home Medications: Home Medications Walking cane 1 each MISCELLANE DAILY 05/15/15 [History Confirmed 04/14/20 Last Taken 04/13/20] multivitamin 1 tab PO DAILY tab 05/15/15 [History Confirmed 04/14/20 Last Taken 04/13/20 1 Tablet] marijuana 1 dose MISCELLANE QDAY PRN 04/22/17 [History Confirmed 04/14/20 Last Taken 04/13/20 Inhalation] Right leg brace-Custom Hinged 0 dose .ROUTE .MEDSUPPLY 12/07/17 [History Confirmed 04/14/20 Last Taken 04/13/20] acidophilus 1 tab PO DAILY 02/07/20 [History Confirmed 04/14/20 Last Taken 04/13/20 1 Tablet] ginsing 1 tab PO DAILY 02/07/20 [History Confirmed 04/14/20 Last Taken 04/13/20 1 Tablet] iodine (kelp) 0.15 mg tablet 0.15 mcg PO QDAY tab 02/07/20 [History Confirmed 04/14/20 Last Taken 04/13/20 0.15 mcg] Pantoprazole [Protonix] 40 mg PO DAILY 04/13/20 [History Confirmed 04/14/20 Last Taken 04/11/20 40 mg] Sucralfate [Carafate] 1 gm PO DAILY 04/13/20 [History Confirmed 04/14/20 Last Taken 04/13/20 1 Gram] cefTRIAXone [Rocephin] 2 gm IV Q24H #11 vial 04/18/20 [Rx Last Taken Unknown] Medical - DS: Hosp Hospital Course: Discharge diagnosis * Streptococcus intermedius bacteremia-surveillance cultures negative so far. On Rocephin as per ID recommendations for additional 11 days. Follow-up with ID clinic in 14 days * Severe sepsis second above clinically improving. White count improving * Transaminitis/Hyperbili: 2/2 infiltrative tumor, metastatic disease. 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 was supposed to get 2nd infusion today. 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 Lundy oncology-scheduled appointment 04/30. * Physical debility from polio as a child: occasionally uses and cane and uses leg braces * Early COPD. Non-oxygen dependent. Stable Brief hospital course Mr. Trujillo is a 69 year old M Presents the ED with fever. Patient was sent in from the cancer center because he had a fever. He did not feel feverish. He went into the cancer center to get his second iron infusion for anemia related to his cancer. Pertinent history is on March 13 he went to the ER for weakness nausea dizziness headache shortness of breath. At that time he was found to have a hemoglobin of 4.2, a leukocytosis of 14. That time patient was transferred to [place] for GI bleed. While at the [place] where an EGD was done which showed a fungating ulcerating oozing mass 5 x 7 cm in the gastrium. He had a CT chest abdomen pelvis which showed a large gastric fundus mass measuring 7.7 with bulky confluent hepatic metastatic disease in all lobes of the liver. 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 He was discharged on the . Follow-up with Dr. Vidal. Dr. Hanson's in order to lower extremity venous Doppler which for bilateral lower extremity swelling which showed no DVTs. Follow-up with Dr. Lundy his oncologist who needed more tissue for mutation studies. He underwent a CT-guided biopsy at [facility] on April 12. And today he went to the cancer center for follow-up visit. Because he had fever he was asked to go to the ER. In the ER was found to have a leukocytosis of 15, he also had a leukocytosis on the day he was transferred up to [place]. He is febrile with a temperature of 102, he had hemoglobin 7.1 and a sodium of 127. Liver enzymes elevated. Lactate was okay but procalcitonin was elevated although in the setting of metastatic cancer difficult to interpret procalcitonin results. Patient denies any blood in his stools Urinalysis unimpressive, no leukocyte Esterase or nitrites but did have WBCs. Patient denies dysuria Patient denies abdominal pain but states he feels a little bit more distended lately. No chest pain shortness of breath or coughing. He denies any blood in his stool. He has braces on his legs as he had polio as a child. He does have edema in his legs but he is had that off and on for quite a while. No change in the past month. Dr. Velazco did discuss the case with on-call oncologist Dr. Pacheco. Dr. Pacheco did mention that fever could simply be from the metastatic liver dz given that the case for bacterial peritonitis is pretty weak as well as a UTI. Patient does not have any respiratory symptoms whatsoever to indicate a consideration for coronavirus. Lower half of the lungs on CT abdomen/pelvis were unremarkable. Regardless we will treat empirically for infection and f/u labs and cultures. Patient will need to follow-up closely with oncologist and as it was suggested may need to start empiric treatment before the mutation studies are back given his rapid progression. 04/14 Patient does not feel feverish. No new pains or complaints. Sodium improved. Bilirubin mildly elevated. 04/15 No pains or complaints. Mild fever overnight, fever curve improving. Fluctuating leukocytosis although decreased today. Mild bandemia initially present has resolved. 04/16-fever defervesced. Between a lot better. 4-5 watery stools. White count down to 14.5. Sodium 132. LFTs downtrending. 04/17-GPC bacteremia. ID consulted. Continue vancomycin. Continued surveillance blood cultures. Remains afebrile. White count 14.5. LFTs elevated likely in the setting of metastatic infiltrative tumor. 04/18-intermittent fever. Cultures Streptococcus intermedius. Surveillance cultures negative so far. Await antibiotic commendations. Will likely discharge in 24 hours with outpatient antibiotics as per ID. White count of 13.4. Sodium 134. LFT remains elevated due to infiltrative tumor. 04/19-patient discharging home with advised to continue IV Rocephin for additional 11 days. We will follow-up with oncology for management of metastatic gastrointestinal stromal tumor. Detail discharge instructions as below. Discharge diagnosis: . - Time Spent with Patient Total time spent providing and/or coordinating discharge services: Greater than 30 minutes Medical - DS: Exam - Constitutional Vitals: Vital Signs Temp Pulse Resp BP BP Pulse Ox 04/19/20 07:57 98.1 F 62 16 140/81 97 04/19/20 07:25 74 18 96 04/19/20 04:23 98.5 F 64 24 H 145/75 96 04/19/20 00:38 99.4 F H 04/18/20 23:53 101.0 F H 04/18/20 23:25 101.0 F H 75 24 H 143/65 94 04/18/20 18:49 99.9 F H 73 24 H 145/71 95 04/18/20 15:28 100.1 F H 69 18 132/71 97 04/18/20 12:00 98.4 F 65 18 142/76 98 Intake and Output 04/18/20 04/19/20 04/19/20 21:59 05:59 13:59 Intake Total 1040 150 Output Total 200 Balance 1040 -50 Intake: Oral 1040 150 Output: Void Amount 200 Other: Meal Dinner Breakfast Percent of Meal Consumed 100% 100% Feeding Ability Independent Independent # Voids 1 5 Weight 160 lb 14.4 oz 157 lb 11.2 oz Medical - DS: Data Labs on day of discharge: Labs from last 24 hours 04/19/20 04/19/20 05:00 05:00 WBC 13.3 H RBC 3.88 L Hgb 9.8 L Hct 32.2 L MCV 83.0 MCH 25.3 L MCHC 30.4 L RDW 21.1 H Plt Count 700 H MPV 9.0 Total Counted 100 Seg Neutrophils % 85 H Band Neutrophils % Not Reportable Lymphocytes % 11 L Monocytes % (Manual) 2 Eosinophils % (Manual) 2 Platelet Estimate Increased A RBC Morphology Abnorm A Hypochromasia 1+ A Anisocytosis 2+ A Sodium 135 Potassium 3.8 Chloride 99 Carbon Dioxide 26 Anion Gap 10.0 BUN 10 Creatinine 0.8 GFR Calculation 92 Glucose 101 Uric Acid 3.4 Calcium 7.7 L Phosphorus 3.1 Magnesium 2.0 Total Bilirubin 0.5 Direct Bilirubin 0.3 GGT 317 H AST 55 H ALT 82 H Alkaline Phosphatase 441 H Lactate Dehydrogenase 450 H Total Protein 5.3 L Albumin 2.0 L Globulin 3.3 Albumin/Globulin Ratio 0.6 L Triglycerides 62 Preliminary micro results at discharge 04/13/20 16:55 Blood Culture - Preliminary Blood Streptococcus intermedius 04/16/20 12:43 Blood Culture - Preliminary Blood 04/16/20 12:48 Blood Culture - Preliminary Blood 04/17/20 10:05 Blood Culture - Preliminary Blood 04/17/20 10:10 Blood Culture - Preliminary Blood 04/13/20 16:50 Blood Culture - Preliminary Blood Streptococcus intermedius Medical - DS: A/P - Patient/Caregiver Discharge Instructions Activity: increase activity as tolerated Diet: Regular Diet Additional Instructions: Follow-up PCP in 5 days F/u Oncology with Dr. Lundy at [facility] on 04/30 for evaluation of metastatic GIST I recommend PCP physician to check CBC BMP UA as a posthospital follow-up in 1 week. Antibiotics for for 11 days IV Rocephin High protein calorie supplements All meals on chair sitting upright at 90 degrees to prevent aspiration Return to ER if worsening fever chills shortness of breath, diarrhea, bleeding Review risk and side effect profile of medications including antibiotics. Side effect may include mild to severe reaction including rash, diarrhea, cdiff and even which can be prevented by close follow-up with PCP and monitoring for side effects Continue diet and activity as advised Discussed importance of medication adherence Please review medication list with patient prior to discharge Please schedule follow-up with PCP/Providers prior to discharge and provide printouts Prescriptions: cefTRIAXone [Rocephin] 2 gm IV Q24H #11 vial Prescription Printed Other Amb Orders: Outpatient Midline Catheter Care Location: None Selected - Follow up Plan Follow up with: Nati Lundy MD [Physician] - 04/30/20 3:30 pm Dick Tejada ARNP [Primary Care Provider] - 04/20/20 2:00 pm Disposition: Home, Self-Care Prognosis: Fair Rehab Potential: Fair I certify that the patient requires SNF services: No Overall status at discharge: patient is progressing back to baseline Medical - DS: Qual - VTE Deep Vein Thrombosis/Pulmonary Embolism Present on Admission: No
== END 2020-04-19 13:58 | disposition home or self-care (01) | DRG 872 ==
LOC: ED 15:41 → MEDSUR 21:34
PROVIDERS: ADMIT Internal Medicine; ATTEND Internal Medicine